=== PATIENT | male | born 1960 | race Caucasian/White ===

== ENCOUNTER 2019-08-09 17:08 | Emergency (ER) | payer BC, SELFPAY ==
--- NOTE | ~2019-08-09 | XR_ITS ---
EXAMINATION: XR chest 2V DATE: 08/09/2019 17:37 INDICATION: Cough TECHNIQUE: PA and lateral views of the chest are obtained. COMPARISON: None available FINDINGS: The lungs are free of acute opacities. There is no pleural effusion or pneumothorax. The ca rdiomediastinal silhouette is normal. There is moderate thoracic spondylosis. IMPRESSION: 1. No acute cardiopulmonary abnormality. Reviewed, dictated and finalized at location A. 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
[2019-08-09 17:15] VITALS: BP 135/77; PULSE 86; RESP 16; TEMP 36.4; O2SAT 97
--- NOTE | 2019-08-09 17:31 | ED.GENADULT ---
HPI - General Adult General Chief complaint: Upper Respiratory Infection Stated complaint: SORE THROAT/SINUS/COUGH Time Seen by Provider: 08/09/19 17:21 Source: patient Mode of arrival: ambulatory Limitations: no limitations History of Present Illness HPI narrative: 59-year-old male presents for evaluation of cough symptoms that have been present for 6 weeks. He reports cough appeared to get better but over the course of the last week, he noticed symptoms have worsened. He is reporting a combination of dry and productive cough, sinus congestion, rhinorrhea, fatigue. He has gone through entire boxes of Mucinex, [place], DayQuil, NyQuil. He did not get a flu shot this season. He denies any past medical history. He does not have a PCP. Denies any chest pain, radiating pain, shortness of breath, wheezing, fever, abnormal swelling, rash, weakness, dizziness. 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 He has never followed up with anyone about that. Related Data Allergies Allergy/AdvReac Type Severity Reaction Status Date / Time No Known Allergies Allergy Verified 08/09/19 17:14 Review of Systems Review of Systems: Narrative: CONSTITUTIONAL: Denies fever, chills, weight loss, or sweats. EYES: Denies visual changes, redness, or discharge. ENT: Reports rhinorrhea, congestion. Denies sore throat, otalgia. CARDIOVASCULAR: Denies chest pain, palpitations, or edema. RESPIRATORY: Denies dyspnea. Reports cough dry and productive GASTROINTESTINAL: Denies abdominal pain, nausea, vomiting, or diarrhea. GENITOURINARY: Denies dysuria, hematuria, urinary frequency, malordous urine SKIN: Denies rash or itching. MUSCULOSKELETAL: Denies back pain, joint pain, myalgia, swelling NEUROLOGIC: Denies headache, numbness, or weakness. All systems reviewed & are unremarkable except as noted in HPI and below PMFSH Comments At the time of my signature, I agree with nursing past medical, surgical, social and family history. There is no relevant family history pertinent to the presenting complaint. Exam Narrative: Exam Narrative: GENERAL: No distress, well appearing, well nourished, alert and calm, obese HEAD: Normocephalic, atraumatic. No sinus tenderness noted EYES: Pupils equal, round. Extraocular movements intact. Conjunctivae without redness or drainage. EARS: Tympanic membranes without erythema. TM landmarks intact with good light reflex. Ear canals without discharge. NOSE: Nares patent. Nasal turbinates inflamed. No nasal discharge MOUTH: Mucous membranes moist. No lesions. No cyanosis. Dentition grossly normal. THROAT: Oropharynx without signs erythema, exudates or lesions. Tonsils not enlarged. NECK: Supple. No lymphadenopathy. RESPIRATORY: Airway patent. Diminished aeration on bilaterally. No wheezing or crackles noted. Sats 97% room air. No retractions or nasal flaring noted CARDIOVASCULAR: Regular rate and rhythm. No murmurs, rubs, gallops, or clicks. Capillary refill <2 seconds. MUSCULOSKELETAL: Range of motion grossly normal in all four extremities. Strength grossly normal in all four extremities. No edema. No swelling SKIN: Color normal. Warm and dry. No rashes. NEURO: Alert. Motor intact in all extremities. Muscle tone normal. Cranial nerves II through XII grossly intact Course Course Emergency Course: Obtaining influenza swab and chest x-ray. Vital Signs Vital signs: Vital Signs Temperature 97.5 F L 08/09/19 17:15 Pulse Rate 86 08/09/19 17:15 Respiratory Rate 16 08/09/19 17:15 Blood Pressure 135/77 08/09/19 17:15 Pulse Oximetry 97 08/09/19 17:15 Temperature 97.5 F L 08/09/19 17:15 Pulse Rate 86 08/09/19 17:15 Respiratory Rate 16 08/09/19 17:15 Blood Pressure 135/77 08/09/19 17:15 Pulse Oximetry 97 08/09/19 17:15 Reviewed The patient has been informed that they may have pre-hypertension or Hypertension based on a
== END 2019-08-09 18:08 | disposition home or self-care (01) ==
PROVIDERS: Emergency Provider Nurse Practitioner
DX: J40 Bronchitis, not specified as acute or chronic (principal)
CPT/HCPCS: 71046; 87804; 99203; G0463

== ENCOUNTER 2021-10-17 07:06 | Outpatient (CLI) | payer OTHER, SELFPAY ==
--- NOTE | ~2021-10-17 | XR_ITS ---
EXAMINATION: XR knee RT 3V EXAM DATE: 10/17/2021 07:28 INDICATION: R22.41 -NO INJURY , mass and lump medial side. TECHNIQUE: Three projections of the right knee. There is no prior study for comparison. FINDINGS: There are surgical changes from right anterior cruciate ligament repair. There is moderate osteoarthritis which could be primary an/or posttraumatic given the ligament repair anchors. Bulky en dplate osteophytes along the medial aspect of the tibiofemoral compartment. Meniscal calcifications, chondrocalcinosis. Chondrocalcinosis can be an age related finding, but with other possible etiologi es including CPPD, parathyroid disorders, hemochromatosis, gout. No sizable joint effusion. There are no acute fractures identified. IMPRESSION: 1. Moderate right knee osteoarthritis. 2. Chondrocalcinosis. Reviewed, dictated and finalized at location A.
== END 2021-10-17 07:07 | disposition home or self-care (01) ==
LOC: ANHIMG 07:11
PROVIDERS: PCP Physician Assistant; Visit Provider Physician Assistant
DX: R22.41 Localized swelling, mass and lump, right lower limb (principal); M17.11 Unilateral primary osteoarthritis, right knee; M11.261 Other chondrocalcinosis, right knee
CPT/HCPCS: 73562

== ENCOUNTER 2024-10-11 11:06 | Outpatient (CLI) | payer MEDICARE, OTHER, SELFPAY ==
--- NOTE | ~2024-10-11 | XR_ITS ---
Left Shoulder Technique: AP and scapular Y views were obtained. Clinical History: Pain Findings: No fracture or dislocation is seen. Osseous alignment is anatomic. The glenohumeral and acr omioclavicular joint spaces are preserved. Soft tissues are unremarkable. Impression: Unremarkable left shoulder radiographs. Reviewed, dictated and finalized at [facility]. Impression: Unremarkable left shoulder radiographs.
--- OUTSIDE RECORDS SUMMARY | 2024-10-11 12:32 | XMS_ITS | Clinical Summary ---
Author Organization [facility] Address [address] [place] [id number] Care Team Providers Care Polysomnograph Tech Name Role Phone Omid Martinez MD Unavailable [phone] Ton Araiza MD Unavailable Nita Park MD Unavailable [phone] Ck Vasquez OD Unavailable [phone] Segun Kaur MD Unavailable Bonita Culp OD Unavailable [phone] Omid Martinez MD Primary Care Provider Allergies No known active allergies Medications rosuvastatin (Crestor) 10 mg tablet Take 1 tablet (10 mg total) by mouth daily 4 Active bimatoprost (Lumigan) 0.01 % ophthalmic drops Administer 1 drop into both eyes nightly 5 mL 11 5 07/03/19 26 Active timolol (TIMOPTIC) 0.5 % ophthalmic solution Administer 1 drop into both eyes 2 (two) times a day Active Active Problems Problem Noted Date Diagnosed Date Pellucid marginal degeneration of both corneas 0 10/04/2024 Assessment & Plan (10/04/2024 4:17 PM CDT): High cylinder with crab-claw appearance of steepening on korina 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 Aim -2.50 Assessment & Plan (08/16/2024 12:53 PM SUPERVISING LIBRARIAN): Myopic shift- hold on new Mrx for now with marked change F/U with IOLM and further discussion of cataract extraction (CE) Assessment & Plan (05/23/2024 11:08 AM SUPERVISING LIBRARIAN): Small central posterior subcapsular cataract (PSC) OD - approaching VS NVS left eye (OS) Refracted post dilation today - Shift OD, recheck next visit prior to Marroquin visual field (HVF) Monitor 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 both eyes 05/23/2024 Overview (08/16/2024): FHx: none CCT: 549/541 Gonio: 3-4 x 4 quadrants OU Tmax: 20s (per pt) Sx: none Gtt: lumigan qhs OU, timolol BID OU Intolerances: none Ocular Hx: ?NAION, no history of migraines, no history of raynauds, no episodes of anemia or requiring a transfusion Assessment & Plan (10/04/2024 4:17 PM CDT): Seen by Dr Jama - favor sequential NAION Per pt, pre-tx IOP in 20's IOP sl asymmetric 16/11 on 2 classes OU but unclear of IOP goal Baseline 10-2 performed today with central island inferior Would not do MIGS concurrently with phaco Assessment & Plan (08/16/2024 12:40 PM SUPERVISING LIBRARIAN): New patient, referred by Dr. Lopez for glaucoma suspect FHx: none CCT: 549/541 Gonio: 3-4 x 4 quadrants OU Tmax: 20s (per pt) Sx: none Gtt: lumigan qhs OU, timolol BID OU Intolerances: none Ocular Hx: ?NAION, no history of migraines, no history of raynauds, no episodes of anemia or requiring a transfusion Does note a history of snoring. otherwise relatively healthy. Notes that he has slowly lost vision in the right eye over the past 18 years. In the left has noticed progressive worsening of the vision in the past couple of years as well. HVF 06/2024 OD - superior altitudinal defect OS: - superior arcuate vs altitudinal defect OCT RNFL 08/16/24 OD - polar thinning with inf>sup loss, small nerve OS - primarily inferior thinning, small nerve Assessment/Plan: Patient notes history of gradual vision loss in the right eye x 18 years and more recently over the past several years has been noticing a gradual change in vision in the left eye. He does appear to have possible optic nerve pits in both eyes, so wonder whether visual field defects are associated with optic nerve pits. Would defer to neuro-ophthalmology for their thoughts on this. Possible normal tension glaucoma but no history of migraines or raynauds or episodes of severe blood loss. - Agree with neuro-ophth referral Obtain records from Dr. Culp at [facility] Obtain MRI for Dr. Jama's review - continue lumigan qhs and jasen both eyes (OU) Assessment & Plan (07/21/2024 4:03 PM SUPERVISING LIBRARIAN): No family history Difficult to discern anterior ischemic optic neuropathy (AION) changes from glaucoma Diagnosed by Dr Foster, IOPs were in mid 20s per patient. -Will request records intraocular pressure (IOP) both eyes (OU) mid teens to 20 on Lumigan at bedtime (QHS) Normal CCT both eyes (OU) Continue present meds Pt will need consult from glaucoma service Assessment & Plan (05/23/2024 12:29 PM SUPERVISING LIBRARIAN): No family history Diagnosed by Dr Foster, IOPs were in mid 20s per patient. -Will request records Acceptable intraocular pressure (IOP) both eyes (OU) on Lumigan at bedtime (QHS) Continue present meds FU For pach and Marroquin visual field (HVF) both eyes (OU) Pt will need consult from glaucoma service Venous stasis dermatitis 08/18/2013 Skin benign neoplasm 08/18/2013 Encounters Date Type Department Care Team Description 10/11/2024 Telephone [facility] Ophthalmology [address] [place] [address] [place] [address] Ivana Gates COA 10/04/2024 2:45 PM CDT Office Visit [facility] Ophthalmology [facility] [place] [address] Nita Park MD 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 both eyes (Primary Dx); Combined forms of age-related cataract of both eyes; Pellucid marginal degeneration of both corneas; NAION (non-arteritic anterior ischemic optic neuropathy), bilateral 10/04/2024 Telephone [facility] Ophthalmology [address] [place] [phone] Ivana Gates COA 09/12/2024 10:00 AM CDT - 09/12/2024 11:59 PM CDT Hospital Encounter [facility] [address] [place] [phone] Discharge Disposition: Discharge to home or self care 09/12/2024 9:59 AM CDT - 09/12/2024 11:59 PM CDT Hospital Encounter [facility] ([facility]) [address] [place] [address] Discharge Disposition: Discharge to home or self care 09/12/2024 Documentation [facility] Ophthalmology [address] [place] [phone] Argenis Jama MD 09/07/2024 Results Follow-Up [facility]hthalmology [address] [place] [phone] Argenis Jama MD 09/04/2024 10:40 AM CDT Lab [address] [address] Optic atrophy, both eyes 09/04/2024 9:15 AM CDT Office Visit [facility] Ophthalmology [address] [place] [phone] Argenis Jama MD Optic atrophy, both eyes (Primary Dx); 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; Snoring; Unspecified disorder of visual pathways 09/04/2024 8:30 AM CDT Imaging Exam [facility]mology [address] [place] [phone] Unspecified disorder of visual pathways; Observation for other specified suspected conditions 08/30/2024 Orders Only [facility] Ophthalmology [address] [phone] Argenis Jama MD Unspecified disorder of visual pathways (Primary Dx); Observation for other specified suspected conditions 08/23/2024 Telephone [facility] Ophthalmology [address] [place] [phone] Nita Park MD 08/22/2024 Telephone [facility] [address] [facility] [address] [facility] [address] [place] [address] Nita Park MD 08/16/2024 8:30 AM SUPERVISING LIBRARIAN Office Visit [facility] Ophthalmology [address] [place] [phone] Nita Park MD 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 both eyes (Primary Dx); NAION (non-arteritic anterior ischemic optic neuropathy), bilateral; Combined forms of age-related cataract of both eyes 08/16/2024 8:20 AM SUPERVISING LIBRARIAN Imaging Exam [facility] [address] [place] [phone] 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 both eyes 08/16/2024 8:00 AM SUPERVISING LIBRARIAN Imaging Exam [facility] [address] [place] [phone] 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 both eyes 08/10/2024 Orders Only [facility]mology [address] [place] [phone] Nita Park MD 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 both eyes (Primary Dx) 07/28/2024 Telephone [facility] Ophthalmology [address] [place] [phone] Argenis Jama MD 07/13/2024 2:00 PM SUPERVISING LIBRARIAN Office Visit [facility] [address] [facility] [address] [place] [address] Sol Lopez, OD 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 both eyes (Primary Dx); NAION (non-arteritic anterior ischemic optic neuropathy), bilateral; Anomalous optic nerve (HCC) from Last 3 Months Medical History Medical History Date Comments Hx Other Medical RT ACL repair Hx Other Medical Discectomy Hx Other Medical Varicocele Family History Medical History Relation Name Comments Cancer Father 2 Family history of malignant neoplasm - (Added by TW Conv) Coronary artery disease Father 2 Dinesh nary artery disease; Hypertension Father 2 Family history of hypertension - (Added by TW Conv) Relation Name Status Comments Father 1 Alive Father 2 Social History Tobacco Use Types Packs/Day Years Used Date Smoking Tobacco: Never Smokeless Tobacco: Never Tobacco Cessation:Counseling Given: Not Answered Alcohol Use Standard Drinks/Week Comments Yes 0 (1 standard drink = 0.6 oz pur e alcohol) AUDIT-C Answer Date Recorded Q1: How often do you have a drink containing alc ohol? Monthly or less 09/04/2024 Average Number of Drinks Not on file 025 Frequency of Binge Drinking Not on file 08/26 Sex and Gender Information Value Date Recorded Sex Assigned at Not on file Legal Sex Male 11:34 PM SUPERVISING LIBRARIAN Gender Identity Not on file Sexual Orientation Not on file Obstetrics History Last Filed Vital Signs Vital Sign Reading Time Taken Comments Blood Pressure 112/74 10/15/2014 3:45 PM CDT Pulse 80 10/15/2014 3:45 PM CDT Temperature - - Respiratory Rate - - Oxygen Saturation - - Inhaled Oxygen Concentration - - Weight 126.1 kg (278 lb) 10/15/2014 3:45 PM CDT Height 182.9 cm (6') 10/15/2014 3:45 PM CDT Body Mass Index 37.7 10/15/2014 3:45 PM CDT Plan of Treatment Health Maintenance Due Date Last Done Comments Colon Cancer Screening-Colonoscopy 1959 Depression Screening 1959 Fall Risk Assessment 1959 Hepatitis C Screening 1959 Prostate Cancer Screening-PSA 1959 Hepatitis B Screening 1977 Pneumococcal vaccine 65+ (1 of 1 - PCV) 2009 Zoster Vaccine (1 of 2) 2009 Covid-19 Vaccine (3 - 2023-2 5 season) 2024 09/18/2020, 08/21/2020 Well Visit 65+ 2024 Influenza Vaccine (Season Ended) 2025 05/24/2022, 04/18/2020, 09/15/2019, Additional history exists DTaP/Tdap/Td Vaccine (3 - Td or Tdap) 05/24/2032 05/24/2022, 04/14/2018 Procedures Procedure Name Priority Date/Time Associated Diagnosis Comments IOL BIOMETRY - OU - BOTH EYES Routine 10/04/2024 3:13 PM CDT Combined forms of age-related cataract of both eyes MARROQUIN VISUAL FIELD - OD - RIGHT EYE Routine 10/04/2024 3:13 PM CDT 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 both eyes NEURO MR OUTSIDE REFERENCE Routine 09/12/2024 10:00 AM CDT NEURO MR OUTSIDE REFERENCE Routine 09/12/2024 9:59 AM CDT FOLATE Routine 09/04/2024 10:53 AM CDT Optic atrophy, both eyes COPPER, SERUM Routine 09/04/2024 10:53 AM CDT Optic atrophy, both eyes METHYLMALONIC ACID, SERUM Routine 09/04/2024 10:53 AM CDT Optic atrophy, both eyes VITAMIN B1 Routine 09/04/2024 10:53 AM CDT Optic atrophy, both eyes VITAMIN B12 Routine 09/04/2024 10:53 AM CDT Optic atrophy, both eyes VITAMIN A Routine 09/04/2024 10:53 AM CDT Optic atrophy, both eyes RPR Routine 09/04/2024 10:53 AM CDT Optic atrophy, both eyes HIV 1/2 ANTIBODY PLUS P24 ANTIGEN Routine 09/04/2024 10:53 AM CDT Optic atrophy, both eyes MARROQUIN VISUAL FIELD - OU - BOTH EYES Routine 09/04/2024 8:57 AM CDT Unspecified disorder of visual pathways Observation for other specified suspected conditions FUNDUS PHOTOS/FAF - OU - BOTH EYES Routine 08/16/2024 10:46 AM SUPERVISING LIBRARIAN 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 both eyes MARROQUIN VISUAL FIELD - OU - BOTH EYES Routine 08/16/2024 8:34 AM SUPERVISING LIBRARIAN 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 both eyes OCT, OPTIC NERVE - OU - BOTH EYES Routine 08/16/2024 8:29 AM SUPERVISING LIBRARIAN 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 both eyes MARROQUIN VISUAL FIELD - OU - BOTH EYES Routine 07/13/2024 2:00 PM SUPERVISING LIBRARIAN 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 both eyes from Last 3 Months Results * IOL Biometry - OU - Both Eyes (10/04/2024 3:13 PM CDT) Anatomical Region Laterality Modality Head Ophthalmic Axial Measurements Narrative 10/04/2024 11:04 PM CDT Acceptable for intraocular lens (IOL) calc Pellucid marginal degen Nita Park MD OPH ULTRASOUND Final R esult * Marroquin Visual Field - OD - Right Eye (10/04/2024 3:13 PM CDT) [facility] Pattern Deviation OD 11.92 db CONTINUUM Mean Deviation OD -28.19 db CONTINUUM Anatomical Region Laterality Modality Head Visual Field Narrative 10/04/2024 11:03 PM CDT Fixation was good. Cooperation was good. Reliability was borderline. Foveal threshold was normal. Findings include superior altitudinal defect. Mean Deviation was -28.19 db. Pattern Deviation was 11.92 db. Notes OD: Superior altitudinal defect with inferior paracentral defect with remaining inferior island 10-2 baseline Nita Park MD OPH VISUAL FIELD Final Result * Neuro MR Outside Reference (09/12/2024 10:00 AM CDT) Impressions RAD_[email or web address] - 09/12/2024 10:00 AM CDT These images are for Reference purposes only and have not been reviewed by [facility] Radiology. There will be no report generated by a [facility] Radiologist. Narrative [facility] - 09/12/2024 10:00 AM CDT EXAMINATION: Images For Reference Purposes Only us Argenis Jama MD IMG MRI PROCEDURES Final Re sult Performing Organization Address [facility] Co de Phone Number [email or web address] * Neuro MR Outside Reference (09/12/2024 9:59 AM CDT) Impressions OLIVIA_LYUDMILA_BJ - 09/12/2024 9:59 AM CDT These images are for Reference purposes only and have not been reviewed by [facility] Radiology. There will be no report generated by a [facility] Radiologist. Narrative [facility] - 09/12/2024 9:59 AM CDT EXAMINATION: Images For Reference Purposes Only us Argenis Jama MD IMG MRI PROCEDURES Final Re sult Performing Organization Address [facility] Co de Phone Number [email or web address] * HIV 1/2 Antibody plus p24 Antigen Blood (09/04/2024 10:53 AM CDT) HIV 1/2 ab + p24 ag Nonreactive Nonreactive Comment:Nonreactive for HIV- 1 antigen and HIV-1/HIV-2 antibodies. No laboratory evidence of HIV infection. If acute HIV infection is suspected, consider testing for HIV-1 RNA. Current interpretive data was last revised on 22. Blood 09/04/2024 10:5 3 AM CDT 09/04/2024 12:35 PM CDT us Argenis Jama MD LAB MICROBIOLOGY - GENERAL ORDERABLES Final Result Performing Organization Address City/[facility] Co de Phone Number STEFANIE [facility] Department [place] [address] * Methylmalonic acid, serum (09/04/2024 10:53 AM CDT) MMA 0.25 <=0.40 nmol/mL [facility] ref Lab Comment: ADDITIONAL INFORMATION This test was developed and its performance characteristics determined by [facility] in a manner consistent with CLIA requirements. This test has not been cleared or approved by the U.S. Food and Drug Administration. Test Performed by: [facility] [place] [address] Financial Recruiter: Jarrod Macias Ph.D.; CLIA# [id number] Blood 09/04/2024 10:5 3 AM CDT 09/04/2024 2:21 PM CDT Argenis Jama MD LAB BLOOD ORDERABLES Final Result STEFANIE GARCIA [facility] Department [place] [address] [facility] * Copper, serum (09/04/2024 10:53 AM CDT) Pathologist [facility] Copper 119 73 - 129 mcg/dL [facility] ref Lab Comment: ADDITIONAL INFORMATION This test was developed and its performance characteristics determined by [facility] in a manner consistent with CLIA requirements. This test has not been cleared or approved by the U.S. Food and Drug Administration. Test Performed by: [facility] - [facility] [address] [place] [address] Financial Recruiter: Jarrod Macias Ph.D.; CLIA# [id number] Blood 09/04/2024 10:5 3 AM CDT 09/04/2024 12:43 PM CDT Narrative STEFANIE BOYD - 09/05/2024 3:49 PM CDT [place] blue top tube. No additives. us Argenis Jama MD LAB BLOOD ORDERABLES Final Result Performing Organization Address City/[facility] Co de Phone Number [facility] [place] [address] [facility] * Vitamin A (09/04/2024 10:53 AM CDT) Vitamin A 42.4 32.5 - 78.0 mcg/dL [facility] Lab Comment: ADDITIONAL INFORMATION This test was developed and its performance characteristics determined by [facility] in a manner consistent with CLIA requirements. This test has not been cleared or approved by the U.S. Food and Drug Administration. Test Performed by: [place] [address] Financial Recruiter: Jarrod Macias Ph.D.; CLIA# [id number] Blood 09/04/2024 10:5 3 AM CDT 09/04/2024 12:43 PM CDT us Argenis Jama MD LAB BLOOD ORDERABLES Final Result Performing Organization Address [facility] Co de Phone Number STEFANIE [facility]IAAl[facility] [place] [address] [facility] * RPR Blood (09/04/2024 10:53 AM CDT) RPR Nonreactive Nonreactive Blood 09/04/2024 10:5 3 AM CDT 09/04/2024 12:35 PM CDT us Argenis Jama MD LAB MICROBIOLOGY - GENERAL ORDERABLES Final Result Performing Organization Address City/[facility] Co de Phone Number STEFANIE [facility] [place] [address] * Vitamin B1 (09/04/2024 10:53 AM CDT) Thiamine (Vit B1) 141 70 - 180 nmol/L [facility] Lab Comment: ADDITIONAL INFORMATION This test was developed and its performance characteristics determined by [facility] in a manner consistent with CLIA requirements. This test has not been cleared or approved by the U.S. Food and Drug Administration. Test Performed by: [facility] - [facility] [address] [place] [address] Financial Recruiter: Jarrod Macias Ph.D.; CLIA# [id number] Blood 09/04/2024 10:5 3 AM CDT 09/04/2024 12:43 PM CDT us Argenis Jama MD LAB BLOOD ORDERABLES Final Result Performing Organization Address City/[facility]/ZIP Co de Phone Number [facility]IE [facility] [place] [address] [facility] * Folate (09/04/2024 10:53 AM CDT) Folic acid 12.3 >=5.0 ng/mL Blood 09/04/2024 10:5 3 AM CDT 09/04/2024 12:35 PM CDT us Argenis Jama MD LAB BLOOD ORDERABLES Final Result [facility] [place] [address] * Vitamin B12 (09/04/2024 10:53 AM CDT) Vitamin B12 428 230 - 1,250 pg/mL Blood 09/04/2024 10:5 3 AM CDT 09/04/2024 12:35 PM CDT Argenis Jama MD LAB BLOOD ORDERABLES Final Result STEFANIE [facility] [place] [address] * Marroquin Visual Field - OU - Both Eyes (09/04/2024 8:57 AM CDT) Pattern Deviation OS 10.91 dB CONTINUUM Pattern Deviation OD 15.11 dB CONTINUUM Mean Deviation OS -7.54 dB CONTINUUM Mean Deviation OD -13.87 dB CONTINUUM Anatomical Region Laterality Modality Head Other Narrative 09/04/2024 11:46 AM CDT Right Eye Fixation was good. Cooperation was good. Reliability was good. Mean Deviation was -13.87 dB. Pattern Deviation was 15.11 dB. Left Eye Fixation was borderline. Cooperation was good. Reliability was good. Mean Deviation was -7.54 dB. Pattern Deviation was 10.91 dB. Notes HVF 24-2 showed a dense superior altitudinal defect OD, and superior altitudinal defect, worse nasally, OS which is which is stable compared to Jun 2024. Argenis Jama MD OPHTH VISUAL FIELD Final Re sult * Fundus Photos/FAF - OU - Both Eyes (08/16/2024 10:46 AM SUPERVISING LIBRARIAN) Anatomical Region Laterality Modality Head Fundus Photograp hy Narrative 08/16/2024 12:58 PM SUPERVISING LIBRARIAN Right Eye Quality was good. Disc findings include increased cup to disc ratio. Macula findings include normal observations. Vessel findings include normal observations. Periphery findings include normal observations. Left Eye Quality was good. Disc findings include notching, thinning of rim. Macula findings include normal observations. Vessel findings include normal observations. Periphery findings include normal observations. Nita Park MD OPHTH PHOTOGRAPHY Final Result * Marroquin Visual Field - OU - Both Eyes (08/16/2024 8:34 AM SUPERVISING LIBRARIAN) Pattern Deviation OS 10.72 dB CONTINUUM Pattern Deviation OD 15.73 dB CONTINUUM Mean Deviation OS -8.51 dB CONTINUUM Mean Deviation OD -18.94 dB CONTINUUM Anatomical Region Laterality Modality Head Other Narrative 08/16/2024 12:57 PM SUPERVISING LIBRARIAN Right Eye Fixation was borderline. Cooperation was borderline. Reliability was borderline. Foveal threshold was normal. Findings include superior altitudinal defect. Mean Deviation was -18.94 dB. Pattern Deviation was 15.73 dB. Left Eye Fixation was borderline. Cooperation was borderline. Reliability was borderline. Foveal threshold was normal. Findings include superior arcuate defect. Mean Deviation was -8.51 dB. Pattern Deviation was 10.72 dB. Notes OD: superior altitudinal defect OS: superior nasal step Nita Park MD OPH VISUAL FIELD Final Result * OCT, Optic Nerve - OU - Both Eyes (08/16/2024 8:29 AM SUPERVISING LIBRARIAN) RNFL OS 93 micrometers CONTINUUM RNFL OD 71 micrometers CONTINUUM Anatomical Region Laterality Modality Head Other Narrative 08/16/2024 12:57 PM SUPERVISING LIBRARIAN Right Eye Reliability was good. Temporal thickness was normal. Superior thickness was showing abnormal thinning. Nasal thickness was normal. Inferior thickness was showing abnormal thinning. Average RNFL thickness 71 micrometers. Left Eye Reliability was good. Temporal thickness was normal. Superior thickness was normal. Nasal thickness was normal. Inferior thickness was showing abnormal thinning. Average RNFL thickness 93 micrometers. Nita Park MD OPH TOMOGRAPHY Final R esult * [place] Visual Field - OU - Both Eyes (07/13/2024 2:00 PM SUPERVISING LIBRARIAN) Pattern Deviation OS 11.02 CONTINUUM Pattern Deviation OD 15.04 CONTINUUM Mean Deviation OS -8.50 CONTINUUM Mean Deviation OD -14.17 CONTINUUM Anatomical Region Laterality Modality Head Visual Field Narrative 07/26/2024 8:18 AM SUPERVISING LIBRARIAN Right Eye Fixation was good. Cooperation was good. Reliability was good. Foveal threshold was normal. Findings include superior altitudinal defect. Mean Deviation was -14.17. Pattern Deviation was 15.04. Left Eye Fixation was good. Cooperation was good. Reliability was good. Foveal threshold was normal. Findings include superior altitudinal defect. Mean Deviation was -8.50. Pattern Deviation was 11.02. Sol Lopez OD OPHTH VISUAL FIELD Final Result from Last 3 Months Insurance MEDICARE [facility] Care Teams Polysomnograph Tech Relationship Specialty Start Date End Date Omid Martinez MD [address] [place] [address] PCP - General Family Medicine 10/04/24 Omid Martinez MD [address] [place] [address] Referring Physician Family Medicine 09/04/24 Ton Araiza MD [address] [facility] [address] [place] [address] Referring Physician Retina Ophthalmology 09/04/24 Nita Park MD [address] [facility], [address] [place] [address] Consulting Physician Glaucoma Ophthalmology 09/04/24 Ck Vasquez, OD [address] [place] [address] Primary Eye Care Provider Optometry 09/04/24 Segun Kaur MD [address] [place] [address] Consulting Physician Retina Ophthalmology 09/04/24 Bonita Culp, OD [address] [place] [address] Primary Eye Care Provider Optometry 09/04/24
--- OUTSIDE RECORDS SUMMARY | 2024-10-11 12:32 | XMS_ITS | Encounter Summary ---
Author Organization [facility] Address [address] [place] [address] Phone Care Team Providers Care Technician Test Systems Name Role Phone Omid Martinez MD Unavailable [phone] Ton Araiza MD Unavailable Nita Park MD Unavailable [phone] Ck Vasquez OD Unavailable [phone] Segun Kaur MD Unavailable Bonita Culp OD Unavailable [phone] Omid Martinez MD Primary Care Provider [phone] Encounter Details Date Type Department Care Team (Late st Contact Info) Description 10/11/2024 Telephone [facility] Ophthalmology [address] [facility] [place] [address] Ivana Gates COA Social History Tobacco Use Types Packs/Day Years Used Date Smoking Tobacco: Never Smokeless Tobacco: Never Alcohol Use Standard Drinks/Week Comments Yes 0 [...] on file 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 Gender Identity Not on file Sexual Orientation Not on file documented as of this encounter Miscellaneous Notes * Telephone Encounter - Ivana Gates COA - 10/11/2024 11:48 AM CDT Duplicate * Telephone Encounter - Ivana Gates COA - 10/11/2024 11:48 AM CDT Duplicate documented in this encounter Plan of Treatment Not on file documented as of this encounter Visit Diagnoses Not on filedocumented in this encounter Care Teams Technician Test Systems Relationship Specialty Start Date End Date Oimd Martinez MD [address] [place] [address] PCP - General Family Medicine 10/04/24 Omid Martinez MD [address] [place] [address] Referring Physician Family Medicine 09/04/24 Ton Araiza MD [address] [facility] [address] [place] [address] Referring Physician Retina Ophthalmology 09/04/24 Nita Park MD [address] [facility], [address] [place] [address] Consulting Physician Glaucoma Ophthalmology 09/04/24 Ck Vasquez OD [address] [place] [address] Primary Eye Care Provider Optometry 09/04/24 Segun Kaur MD [address] [place] [address] Consulting Physician Retina Ophthalmology 09/04/24 Bonita Culp OD [address] [place] [address] Primary Eye Care Provider Optometry 09/04/24 documented as of this encounter
--- OUTSIDE RECORDS SUMMARY | 2024-10-11 12:32 | XMS_ITS | Continuity of Care Document ---
Author Organization [facility] Address [address] [place] [address] Phone Care Team Providers Care Building Code Inspector Name Role Phone Omid Martinez MD Unavailable Unavailable Allergies, Adverse Reactions, Alerts Substance Reaction Status Criticality No Known Allergies Active No Inform ation Medications Medication Instructions Dosage Effective Dates (start - stop) Status Comments Crestor 10 mg tablet take 1 tablet by or al route every day 10 MG - Active Procedures Procedure Date OFFICE/OUTPATIENT VISIT, EST Medicare Addendum OFFICE/OUTPATIENT VISIT, EST OFFICE/OUTPATIENT VISIT, EST PREV VISIT, NEW, AGE 40-64 OFFICE/OUTPATIENT VISIT, NEW Advance Directives Directive Yes / No Effective Date File Name No Information Encounters Encounter Description Practice Location Reason(s) For Visit Diagnoses Date Provider Providers Copied on Encounter OFFICE/OUTPA TIENT VISIT, EST [facility], [address] [place], [place], [id number], [place] tel:[phone] [facility] shoulder pain1 (chief complaint) HLP (chief complaint) weight gain1 (chief complaint) vision1 (chief complaint) Pain in left shoulderMixed hyperlipidemiaIsche tricia optic neuropathy of eyeAbnormal weight gainEncounter for screening for malignant neoplasm of colon 5 Juan Anne. [address], [id number] , [place]. tel:[phone] OFFICE/OUTPA TIENT VISIT, [facility], [address] [place], [address], [place] tel:[phone] [facility] COVID1 (chief complaint) Viral infection 5 Juan Anne. [address], [place], [place], [address] , [place]. tel:[phone] OFFICE/OUTPA TIENT VISIT, EST [facility], [address], [place], [place], [address], [place] tel:[phone] [facility] visual loss1 (chief complaint) Ischemic optic neuropathy of eye 4 Juan Omid. [address], [place], [place], [address] , [place]. tel:[phone] PREV VISIT, NEW, AGE 40-64 [facility], [address], [place], [place], [address], [place] tel:[phone] [facility] physical (chief complaint) Encounter for general adult medical exam w abnormal findingsMixed hyperlipidemiaOther visual disturbances 4 Juan Anne. [address], [place], [place], [address] , [place]. [phone] Family History Family Member Type Diagnosis Age At Onset Mother Problem 94 breast CA Sister Problem Alive and well Brother Problem Prostate CA 67 Father Problem of esophageal CA 86 Payers Payer name Insurance type Covered constitution party ID Authoriza tion(s) [employer] [place] WPS MB [id number] [facility] [id number] Social History Type Description Quantity Date Captured Comments Alcohol Use Details beer 2 drinks weekly Caffeine Use Details Unknown Tobacco Use Status Current non-smoker Smoking Status Never smoker Sex Male Vital Signs Date / Time: Height Weight BMI Pulse Rate Blood Pressure Temperature Respiratory Rate Body Surface Area Head Circumference BMI percentile Pulse Ox Inhaled Ox 11:19 AM 72.00 in 305.60 lbs 41.4 5 kg/m eter (2) 76 /min 128/78 mm[Hg] 98.0 F 16 /min Chief Complaint And Reason For Visit From encounter dated '09/18/2024 09:55'. shoulder pain1 (chief complaint). Description: Pt c/o chronic left shoulder pain for one year Pt denies any injury Pt notices sharp pain left shoulder when he tries to lift left shoulder Pt notices some pain radiating down to left elbow as well .Pt denies any neck pain Pt denies any numbness or tingling. Pt denies any shoulder redness or warmth HLP (chief complaint). Description: Pt has HLP Pt takes crestor Pt denies any myalgia. his lipid profile is ok weight gain1 (chief complaint). Description: Pt has been gaining weight Pt is not physically active vision1 (chief complaint). Description: pt has bilateral ischemia neuropathy both byes and he is seeing ophthalmology to try to find a solution Pt has decreased vision Plan Of Treatment Date Type Action Status Referral Ordered: ALEJA JURADO -[facility]opathic & Osteopathic Physicians : Orthopaedic Surgery (related to Pain in left shoulder) ordered Referral Ordered: Physical Therapy (related to Pain in left shoulder) ordered Referral Referred To: Physical Therapy Ordered: Referrals: Physical Therapy. Evaluate and treat ordered Referral Referred To: ALEJA JURADO [address] [place], [place], [phone] Ordered: Referrals: Allopathic & Osteopathic Physicians : Orthopaedic Surgery. ALEJA JURADO. Evaluate and treat ordered Referral Ordered: Martin Tenorio -[facility]opathic [facility] Osteopathic Physicians : Ophthalmology (related to Ischemic optic neuropathy of eye) ordered Referral Referred To: Martin Tenorio [address] [facility]
[address] [place], [place], [phone] Ordered: Referrals: Allopathic & Osteopathic Physicians : Ophthalmology. Martin Tenorio. Evaluate and treat ordered Referral Ordered: Ton Araiza -[facility]opathic [facility] Osteopathic Physicians : Ophthalmology (related to Other visual disturbances) ordered Referral Ordered: COLONOSCOPY AND BIOPSY ordered Referral Referred To: Ton Araiza [address] [facility]
[address] [place], [phone] Ordered: Referrals: Allopathic & Osteopathic Physicians : Ophthalmology. Ton Araiza. Evaluate and treat ordered Appointment Zana Garcia BOOKED History Of Present Illness Encounter Date Complaint History Of Prese nt Illness shoulder pain1 Pt c/o chronic l eft shoulder pain for one year Pt denies any injury Pt notices sharp pain left shoulder when he tries to lift left shoulder Pt notices some pain radiating down to left elbow as well .Pt denies any neck pain Pt denies any numbness or tingling. Pt denies any shoulder redness or warmth vision1 pt has bilateral ischemia neuropathy both byes and he is seeing ophthalmology to try to find a solution Pt has decreased vision weight gain1 Pt has been gain ing weight Pt is not physically active HLP Pt has HLP Pt jose burns Pt denies any myalgia. his lipid profile is ok COVID1 Pt c/o acute ons et of dry cough, sinus congestion, sore throat, malaise, low grade temp since yesterday. He tested positive for COVID today. His also has COVID currently. Pt has not received the COVID booster yet. 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 pt notices mild burning both eye sometimes Pt is seeing retina specialist who diagnosed him with non-arteritic anterior ischemic optic neuropathy and he needs to see Dr. Jona glynn for further treatment. Pt is at risk to lose his eyesight completely . 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 Pt needs referral. Pt uses eye drop for glaucoma which does help. Pt otherwise feels fine. Pt denies any other complaints Instructions Date Instruction Additional Infor mation No Information Assessments Type Assessment Date assessment Pain in left shoulder assessment Mixed hyperlipidemia assessment Ischemic optic neuropathy of eye assessment Abnormal weight gain assessment Encounter for screening for martha gnant neoplasm of colon Mental Status Date Cognitive Assessment Orientation - Cartwright ed to time, place, person, situation.
--- OUTSIDE RECORDS SUMMARY | 2024-10-11 12:32 | XMS_ITS | Encounter Summary ---
Author Organization [facility] Address [address] [place] [address] Phone Care Team Providers Care Family Resource Coordinator Name Role Phone Omid Martinez MD Unavailable Ton Araiza MD Unavailable Nita Park MD Unavailable [phone] Ck Vasquez OD Unavailable [phone] Segun Kaur MD Unavailable Bonita Culp OD Unavailable [phone] Omid Martinez MD Primary Care Provider [phone] Encounter Details Date Type Department Care Team (Late st Contact Info) Description 10/04/2024 Telephone [facility] Ophthalmology [address] [facility] [place] [address] Ivana Gates COA Social History [...] on file 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 Gender Identity Not on file Sexual Orientation Not on file documented as of this encounter Miscellaneous Notes * Telephone Encounter - Ivana Gates COA - 10/04/2024 4:28 PM CDT Phoned patient to schedule surgery: My Chart 10/11 Location: [facility] SX plan: CE/IOL OD Discussed surgery date: 11/07 HOLDING Ascan:[] yes [] no Target plan: Cataract Event Planning: IOL Ordered: Second eye (order added) Blood thinners (yes) or (no) special instruction: Postop appointment [] Prep for case[] Letter mailed[] Prior auth[] Drops sent[] Line up (arrival time) SX Time: * Telephone Encounter - Ivana Gates COA - 10/04/2024 4:28 PM CDT ----- Message from Nita Park MD sent at 10/04/2024 11:07 PM CDT ----- Cataract extraction (CE)/intraocular lens (IOL) right eye (OD) [employer] near- please confirm with pt when scheduling ? 11/07 documented in this encounter Plan of Treatment Not on file documented as of this encounter Visit Diagnoses Not on filedocumented in this encounter Care Teams Family Resource Coordinator Relationship Specialty Start Date End Date Omid Martinez MD [address] [place] [address] PCP - General Family Medicine 10/04/24 Omid Martinez MD [address] [place] [address] Referring Physician Family Medicine 09/04/24 Ton Araiza MD [address] [place] [address] Referring Physician Retina Ophthalmology 09/04/24 Nita Park MD [address] [facility], [address] [place] [address] Consulting Physician Glaucoma Ophthalmology 09/04/24 Ck Vasquez, OD [address] [place] [address] Primary Eye Care Provider Optometry 09/04/24 Segun Kaur MD [address] [place] [address] Consulting Physician Retina Ophthalmology 09/04/24 Bonita Culp, OD [address] [facility] [place] [address] Primary Eye Care Provider Optometry 09/04/24 documented as of this encounter
--- OUTSIDE RECORDS SUMMARY | 2024-10-11 12:32 | XMS_ITS | Referral Summary ---
Author Organization [facility] Address [address] [place] [phone] Care Team Providers Care Automatic Grinding Machine Operator Name Role Phone Omid Martinez MD Unavailable [phone] Ton Araiza MD Unavailable Nita Park MD Unavailable Ck Vasquez OD Unavailable [phone] Segun Kaur MD Unavailable Bonita Culp OD Unavailable Omid Martinez MD Primary Care Provider [phone] Encounters Date Type Department Care Team Description 10/11/2024 Telephone [facility] [address] [place] [phone] Ivana Gates COA 10/04/2024 Telephone [facility] [address] [place] [phone] Ivana Gates COA 10/04/2024 2:45 PM CDT Office Visit [facility] [address] [place] [phone] Nita Park MD 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 both eyes (Primary Dx); Combined forms of age-related cataract of both eyes; Pellucid marginal degeneration of both corneas; NAION (non-arteritic anterior ischemic optic neuropathy), bilateral 09/12/2024 Documentation [facility] [address] [place] [address] [address] [place] [phone] Argenis Jama MD 09/12/2024 10:00 AM CDT - 09/12/2024 11:59 PM CDT Hospital Encounter [facility] ([facility]) [address] [place] [phone] Discharge Disposition: Discharge to home or self care 09/12/2024 9:59 AM CDT - 09/12/2024 11:59 PM CDT Hospital Encounter [facility] ([facility]) [address] [place] [phone] Discharge Disposition: Discharge to home or self care 09/07/2024 Results Follow-Up [facility] [address] [place] [phone] Argenis Jama MD 09/04/2024 10:40 AM CDT Lab [address] [address] Optic atrophy, both eyes 09/04/2024 9:15 AM CDT Office Visit [facility] [address] [place] [phone] Argenis Jama MD Optic atrophy, both eyes (Primary Dx); 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; Snoring; Unspecified disorder of visual pathways 09/04/2024 8:30 AM CDT Imaging Exam [facility] [address] [place] [phone] Unspecified disorder of visual pathways; Observation for other specified suspected conditions 08/30/2024 Orders Only [facility] [address] [place] [phone] Argenis Jama MD Unspecified disorder of visual pathways (Primary Dx); Observation for other specified suspected conditions 08/23/2024 Telephone [facility] [address] [place] [phone] Nita Park MD 08/22/2024 Telephone [facility] [address] [place] [address] [address] [place] [phone] Nita Park MD 08/16/2024 8:30 AM AUTOMOBILE SERVICE STATION MECHANIC Office Visit [facility] [address] [place] [phone] Nita Park MD 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 both eyes (Primary Dx); NAION (non-arteritic anterior ischemic optic neuropathy), bilateral; Combined forms of age-related cataract of both eyes 08/16/2024 8:00 AM AUTOMOBILE SERVICE STATION MECHANIC Imaging Exam [facility] [address] [place] [phone] 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 both eyes 08/16/2024 8:20 AM AUTOMOBILE SERVICE STATION MECHANIC Imaging Exam [facility] [address] [place] [phone] 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 both eyes 08/10/2024 Orders Only [facility] [address] [place] [phone] Nita Park MD 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 both eyes (Primary Dx) 07/28/2024 Telephone [facility] [address] [place] [phone] Argenis Jama MD 07/13/2024 2:00 PM AUTOMOBILE SERVICE STATION MECHANIC Office Visit [facility] [address] [place] [phone] Sol Lopez, OD 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 both eyes (Primary Dx); NAION (non-arteritic anterior ischemic optic neuropathy), bilateral; Anomalous optic nerve (HCC) from Last 3 Months Allergies No known active allergies Medications rosuvastatin [...] Plan (10/04/2024 11:05 PM CDT): NAION OD 2016, OS 2022 per [facility] note MRI Brain performed 03/2023 Consistent with ischemic event given objective (visual field (VF) and subjective vision loss Assessment & Plan (08/16/2024 12:38 PM AUTOMOBILE SERVICE STATION MECHANIC): NAION OD 2019, OS 2022 per [facility] note MRI Brain performed 03/2023 ? 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 Very poor Ss on OCT (6/10 and 5/10) 06/09/[address] Arazia states pt had a negative MRI, and progressive vision loss despite good control of intraocular pressure (IOP) and wanted referral to Neuro opth Anomalous optic nerve 05/23/2024 Assessment & Plan (07/26/2024 8:16 AM AUTOMOBILE SERVICE STATION MECHANIC): And high myopia may be contibuting to vf loss Assessment & Plan (05/23/2024 11:10 AM AUTOMOBILE SERVICE STATION MECHANIC): Pt has Myopic/tilted nerve from high myopic [...] -2.50 Assessment & Plan (08/16/2024 12:53 PM AUTOMOBILE SERVICE STATION MECHANIC): Myopic shift- hold on new Mrx for now with marked change F/U with IOLM and further discussion of cataract extraction (CE) Assessment & Plan (05/23/2024 11:08 AM AUTOMOBILE SERVICE STATION MECHANIC): Small central posterior subcapsular cataract (PSC) OD [...] phaco Assessment & Plan (08/16/2024 12:40 PM AUTOMOBILE SERVICE STATION MECHANIC): New patient, referred by Dr. Lopez for [...] referral Obtain records from Dr. Culp at [facility] Obtain MRI for Dr. Jama's review - continue lumigan qhs and jasen both eyes (OU) Assessment & Plan (07/21/2024 4:03 PM AUTOMOBILE SERVICE STATION MECHANIC): No family history Difficult to discern anterior [...] service Assessment & Plan (05/23/2024 12:29 PM AUTOMOBILE SERVICE STATION MECHANIC): No family history Diagnosed by Dr Fostre, IOPs were in mid 20s per patient. -Will request records Acceptable intraocular pressure (IOP) both eyes (OU) on Lumigan at bedtime (QHS) Continue present meds FU For pach and Marroquin visual field (HVF) both eyes (OU) Pt will need consult from glaucoma service Venous stasis dermatitis 08/18/2013 Skin benign neoplasm 08/18/2013 Social History Tobacco Use Types Packs/Day Years [...] on file Legal Sex Male 11:34 PM AUTOMOBILE SERVICE STATION MECHANIC Gender Identity Not on file Sexual Orientation Not on file Last Filed Vital Signs Vital Sign Reading [...] 10/15/2014 3:45 PM CDT Plan of Treatment Not on file Procedures Procedure Name Priority Date/Time Associated Diagnosis [...] - BOTH EYES Routine 08/16/2024 10:46 AM AUTOMOBILE SERVICE STATION MECHANIC 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 both eyes MARROQUIN VISUAL FIELD - OU - BOTH EYES Routine 08/16/2024 8:34 AM AUTOMOBILE SERVICE STATION MECHANIC 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 both eyes OCT, OPTIC NERVE - OU - BOTH EYES Routine 08/16/2024 8:29 AM AUTOMOBILE SERVICE STATION MECHANIC 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 both eyes MARROQUIN VISUAL FIELD - OU - BOTH EYES Routine 07/13/2024 2:00 PM AUTOMOBILE SERVICE STATION MECHANIC 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 both eyes from Last 3 Months Results * IOL Biometry - OU - Both Eyes (10/04/2024 3:13 PM CDT) Anatomical Region Laterality Modality Head Ophthalmic Axial Measurements Narrative 10/04/2024 11:04 PM CDT Acceptable for intraocular lens (IOL) calc Pellucid marginal degen us Nita Park MD OPHTH ULTRASOUND Final R esult * Marroquin Visual Field - OD - Right Eye (10/04/2024 3:13 PM CDT) Pattern Deviation OD 11.92 db CONTINUUM Mean [...] inferior island 10-2 baseline Nita Park MD [facility] VISUAL FIELD Final Result * Neuro MR Outside Reference (09/12/2024 10:00 AM CDT) Impressions [facility] - 09/12/2024 10:00 AM CDT These images are for Reference purposes only and have not been reviewed by [facility]. There will be no report generated by a [facility] Radiologist. Narrative [facility] - 09/12/2024 10:00 AM CDT EXAMINATION: Images For Reference Purposes Only us Argenis Jama MD IM MRI PROCEDURES Final Re sult Performing Organization Address [facility] de Phone Number [email or web address] * Neuro MR Outside Reference (09/12/2024 9:59 AM CDT) Impressions [facility] - 09/12/2024 9:59 AM CDT These images are for Reference purposes only and have not been reviewed by [facility]. There will be no report generated by a [facility] Radiologist. Narrative [facility] - 09/12/2024 9:59 AM CDT EXAMINATION: Images For Reference Purposes Only us Argenis Jama MD IM MRI PROCEDURES Final Re sult Performing Organization Address [facility] Co de Phone Number [email or web address] * HIV 1/2 Antibody plus p24 Antigen Blood (09/04/2024 10:53 AM CDT) Pathologist [facility] HIV 1/2 ab + p24 ag Nonreactive [...] GENERAL ORDERABLES Final Result Performing Organization Address [facility] Co de Phone Number STEFANIE [facility] [place] [address] * Methylmalonic acid, serum (09/04/2024 10:53 AM CDT) Pathologist [facility] MMA 0.25 <=0.40 nmol/mL [place] [facility] Comment: ADDITIONAL INFORMATION This test was developed and its performance characteristics determined by [facility] in a manner consistent with CLIA requirements. This test has not been cleared or approved by the U.S. Food and Drug Administration. Test Performed by: [facility] - [address] [address] Knit Goods Washer: Jarrod Macias Ph.D.; CLIA# [id number] Blood 09/04/2024 10:5 3 AM CDT 09/04/2024 2:21 PM CDT us Argenis Jama MD LAB BLOOD ORDERABLES Final Result Performing Organization Address City/[facility] Co de Phone Number [facility] [place] [address] [place] [facility] * Copper, serum (09/04/2024 10:53 AM CDT) Copper 119 73 - 129 mcg/dL [place] [facility] Comment: ADDITIONAL INFORMATION This test was developed and its performance characteristics determined by [facility] in a manner consistent with CLIA requirements. This test has not been cleared or approved by the U.S. Food and Drug Administration. Test Performed by: [facility] [place] [address] Knit Goods Washer: Jarrod Macias Ph.D.; CLIA# [id number] Blood 09/04/2024 10:5 3 AM CDT 09/04/2024 12:43 PM CDT Narrative STEFANIE BOYD - 09/05/2024 3:49 PM CDT [place] blue top tube. No additives. Argenis Jama MD LAB BLOOD ORDERABLES Final Result STEFANIE GARCIA [facility] [place] [address] [facility] * Vitamin A (09/04/2024 10:53 AM CDT) Pathologist [facility] Vitamin A 42.4 32.5 - 78.0 mcg/dL [place] [facility] Comment: ADDITIONAL INFORMATION This test was developed and its performance characteristics determined by [facility] in a manner consistent with CLIA requirements. This test has not been cleared or approved by the U.S. Food and Drug Administration. Test Performed by: [facility] [place] [address] Knit Goods Washer: Jarrod Macias Ph.D.; CLIA# [id number] Blood 09/04/2024 10:5 3 AM CDT 09/04/2024 12:43 PM CDT us Argenis Jama MD LAB BLOOD ORDERABLES Final Result Performing Organization Address City/[facility]/ZIP Co de Phone Number [facility] [place] [address] [place] [facility] * RPR Blood (09/04/2024 10:53 AM CDT) RPR Nonreactive Nonreactive Blood 09/04/2024 10:5 3 AM CDT 09/04/2024 12:35 PM CDT Argenis Jama MD LAB MICROBIOLOGY - GENERAL ORDERABLES Final Result Performing Organization Address [facility] de Phone Number [facility] [place] [address] * Vitamin B1 (09/04/2024 10:53 AM CDT) Thiamine (Vit B1) 141 70 - 180 nmol/L [place] ref Lab Comment: ADDITIONAL INFORMATION This test was developed and its performance characteristics determined by [facility] in a manner consistent with CLIA requirements. This test has not been cleared or approved by the U.S. Food and Drug Administration. Test Performed by: [facility] - [address] [address] Knit Goods Washer: Jarrod Macias Ph.D.; CLIA# [id number] Blood 09/04/2024 10:5 3 AM CDT 09/04/2024 12:43 PM CDT us Argenis Jama MD LAB BLOOD ORDERABLES Final Result Performing Organization Address City/[facility] Co de Phone Number STEFANIE [facility] [place] [address] [place] [facility] * Folate (09/04/2024 10:53 AM CDT) Pathologist [facility] Folic acid 12.3 >=5.0 ng/mL Blood 09/04/2024 10:5 3 AM CDT 09/04/2024 12:35 PM CDT us Argenis Jama MD LAB BLOOD ORDERABLES Final Result Performing Organization Address [facility] Co de Phone Number [facility] [place] [employer] [place] [address] * Vitamin B12 (09/04/2024 10:53 AM CDT) Pathologist [facility] Vitamin B12 428 230 - 1,250 pg/mL Blood 09/04/2024 10:5 3 AM CDT 09/04/2024 12:35 PM CDT us Argenis Jama MD LAB BLOOD ORDERABLES Final Result Performing Organization Address [facility] Phone Number [facility] [place] [place] [address] * Marroquin Visual Field - OU - Both Eyes (09/04/2024 8:57 AM CDT) [facility] Pattern Deviation OS 10.91 dB CONTINUUM Pattern [...] compared to Jun 2024. Argenis Jama MD OPH VISUAL FIELD Final Re sult * Fundus Photos/FAF - OU - Both Eyes (08/16/2024 10:46 AM AUTOMOBILE SERVICE STATION MECHANIC) Anatomical Region Laterality Modality Head Fundus Photograp hy Narrative 08/16/2024 12:58 PM AUTOMOBILE SERVICE STATION MECHANIC Right Eye Quality was good. Disc findings include increased cup to disc ratio. Macula findings include normal observations. Vessel findings include normal observations. Periphery findings include normal observations. Left Eye Quality was good. Disc findings include notching, thinning of rim. Macula findings include normal observations. Vessel findings include normal observations. Periphery findings include normal observations. Nita Park MD OPH PHOTOGRAPHY Final Result * Marroquin Visual Field - OU - Both Eyes (08/16/2024 8:34 AM AUTOMOBILE SERVICE STATION MECHANIC) Pattern Deviation OS 10.72 dB CONTINUUM Pattern Deviation OD 15.73 dB CONTINUUM Mean Deviation OS -8.51 dB CONTINUUM Mean Deviation OD -18.94 dB CONTINUUM Anatomical Region Laterality Modality Head Other Narrative 08/16/2024 12:57 PM AUTOMOBILE SERVICE STATION MECHANIC Right Eye Fixation was borderline. Cooperation was [...] OU - Both Eyes (08/16/2024 8:29 AM AUTOMOBILE SERVICE STATION MECHANIC) RNFL OS 93 micrometers CONTINUUM RNFL OD 71 micrometers CONTINUUM Anatomical Region Laterality Modality Head Other Narrative 08/16/2024 12:57 PM AUTOMOBILE SERVICE STATION MECHANIC Right Eye Reliability was good. Temporal thickness was normal. Superior thickness was showing abnormal thinning. Nasal thickness was normal. Inferior thickness was showing abnormal thinning. Average RNFL thickness 71 micrometers. Left Eye Reliability was good. Temporal thickness was normal. Superior thickness was normal. Nasal thickness was normal. Inferior thickness was showing abnormal thinning. Average RNFL thickness 93 micrometers. Nita Park MD OPHTH TOMOGRAPHY Final R esult * Marroquin Visual Field - OU - Both Eyes (07/13/2024 2:00 PM AUTOMOBILE SERVICE STATION MECHANIC) Pattern Deviation OS 11.02 CONTINUUM Pattern Deviation OD 15.04 CONTINUUM Mean Deviation OS -8.50 CONTINUUM Mean Deviation OD -14.17 CONTINUUM Anatomical Region Laterality Modality Head Visual Field Narrative 07/26/2024 8:18 AM AUTOMOBILE SERVICE STATION MECHANIC Right Eye Fixation was good. Cooperation was [...] Result from Last 3 Months Insurance MEDICARE [facility] [address] [id number] Care Teams Automatic Grinding Machine Operator Relationship Specialty Start Date End Date Omid Martinez MD [address] [place] [address] PCP - General Family Medicine 10/04/24 Omid Martinez MD [address] [place] [address] Referring Physician Family Medicine 09/04/24 Ton Araiza MD [address] [address] Referring Physician Retina Ophthalmology 09/04/24 Nita Park MD [address] [facility] DEPT OPHTHALMOLOG[facility], [address] [place] [address] Consulting Physician Glaucoma Ophthalmology 09/04/24 Ck Vasquez, OD [address] [place] [address] Primary Eye Care Provider Optometry 09/04/24 Segun Kaur MD [address] [place] [address] Consulting Physician Retina Ophthalmology 09/04/24 Bonita Culp, OD [address] [place] [address] Primary Eye Care Provider Optometry 09/04/24
--- OUTSIDE RECORDS SUMMARY | 2024-10-11 12:32 | XMS_ITS | Clinical Summary ---
Author Organization [facility] Address [address] [place] [address] Care Team Providers Care Bag Hanger Name Role Phone Omid Martinez MD Primary Care Provider [phone] Allergies No known active allergies Medications LUMIGAN 0.01 % Solution Place 1 drop into both eyes nightly at bedtime. 4 Active CRESTOR 10 MG tablet Take 1 tablet (10 mg total) by mouth nightly at bedtime. 4 Active Na sulfate-K sulfate-Mg sulfate (SUPREP BOWEL PREP KIT) 17.5-3.13-1.6 GM/177ML SolutionIndicat ions:Screening for colon cancer Take 177 mLs by mouth every 12 (twelve) hours. Per GI instructions 354 mL 4 Active Resolved Problems Problem Noted Date Diagnosed Date Resolved Date Screening for colon cancer 12/16/2023 0 12/20/2023 Immunizations Immunization Administration Dates Next Due Influenza Adult (Generic) 05/24/2022,04/18/2020, 09/15/2019,04/14/2018 Tdap (Generic) 05/24/2022,04/14/2018 Social History Tobacco Use Types Packs/Day Years Used Date Smoking Tobacco: Never Smokeless Tobacco: Never Tobacco Cessation:Counseling Given: Not Answered Alcohol Use Standard Drinks/Week Comments Yes 0 (1 standard drink = 0.6 oz pur e alcohol) PHQ-2 Answer Date Recorded Patient Health Questionnaire-2 Score 0 12/16/2023 Sex and Gender Information Value Date Recorded Sex Assigned at Not on file Legal Sex Male 10:16 AM CDT Gender Identity Not on file Sexual Orientation Not on file Last Filed Vital Signs Vital Sign Reading Time Taken Comments Blood Pressure 124/75 12/16/2023 1:18 PM CDT Pulse 73 12/16/2023 1:18 PM CDT Temperature 36.3 C (97.4 F) 12/16/2023 1:18 PM CDT Respiratory Rate - - Oxygen Saturation 95% 12/16/2023 1:18 PM CDT Inhaled Oxygen Concentration - - Weight 130.6 kg (288 lb) 12/16/2023 1:18 PM CDT Height 182.9 cm (6') 12/16/2023 1:18 PM CDT Body Mass Index 39.06 12/16/2023 1:18 PM CDT Plan of Treatment Health Maintenance Due Date Last Done Comments Colorectal Cancer Screening Colonoscopy (10 Years) 1960 Hepatitis C 1977 Zoster Vaccines (1 of 2) 2009 COVID-19 Vaccine (3 - 2023-2 5 season) 2024 09/18/2020, 08/21/2020 Pneumococcal Vaccine: 50+ Years (1 of 1 - PCV) 2024 PHQ-2 (Physician [place]) 06/28/2024 12/16/2023 DTaP, Tdap and Td Vaccines ( 3 - Td or Tdap) 05/24/2032 05/24/2022, 04/14/2018 RSV Immunization or 60+ Years (1 - 1-dose 75+ series) 2034 Meningococcal B Vaccine Aged Out No l onger eligible based on patient's age to complete this topic Meningococcal Vaccine Aged Out No corwin vannessa eligible based on patient's age to complete this topic Pneumococcal Vaccine: Pediatrics (0 to 5 Years) and At-Risk Patients (6 to 49 Years) Aged Out No longer eligible b ased on patient's age to complete this topic RSV Immunizations Under 20 Months Aged Out No longer eligible b ased on patient's age to complete this topic Insurance [facility] Care Teams Bag Hanger Relationship Specialty Start Date End Date Omid Martinez MD [address] [place] [address] PCP - General FAMILY PRACTICE 11/12/23
== END 2024-10-11 11:07 | disposition home or self-care (01) ==
PROVIDERS: PCP Emergency Medicine; Visit Provider Orthopaedic Surgery
DX: M25.512 Pain in left shoulder (principal)
CPT/HCPCS: 73030

== ENCOUNTER 2024-11-21 08:39 | Outpatient (CLI) | payer MEDICARE, OTHER, SELFPAY ==
--- OUTSIDE RECORDS SUMMARY | 2024-11-21 08:42 | XMS_ITS | Referral Summary ---
Author Organization [facility] Address [address] [place] [phone] Care Team Providers Care Qa Software Tester Name Role Phone Omid Martinez MD Unavailable [phone] Ton Araiza MD Unavailable Nita Park MD Unavailable [phone] Ck Vasquez OD Unavailable [phone] Segun Kaur MD Unavailable Bonita Culp OD Unavailable Omid Martinez MD Primary Care Provider Encounters Date Type Department Care Team Description 11/15/2024 2:15 PM CDT Office Visit [facility] Ophthalmology [address] [place] [phone] Nita Park MD Postop check (Primary Dx) 11/08/2024 8:45 AM CDT Office Visit [facility] Ophthalmology [address] [place] [phone] Nita Park MD Postop check (Primary Dx) 11/07/2024 12:15 PM CDT - 11/07/2024 1:10 PM CDT Surgery [facility] Operating Room [facility] ([facility]) [address] [place] [phone] Nita Park MD EXTRACTION CATARACT - PHACOEMULSIFICATION AND LENS IMPLANT 11/07/2024 10:37 AM CDT Anesthesia Event [facility] Operating Room [facility] ([facility]) [address] [place] [phone] Will Dior MD Harkins, Cherice Lynette, NP 11/07/2024 10:08 AM CDT - 11/07/2024 12:10 PM CDT Hospital Encounter [facility] Operating Room [facility] ([facility]) [address] [place] [phone] Nita Park MD 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] (Primary Dx) Discharge Disposition: Discharge to home or self care 10/11/2024 Telephone [facility] Ophthalmology [address] [place] [phone] Ivana Gates COA 10/04/2024 Telephone [facility] Ophthalmology [address] [place] [phone] Ivana Gates COA 10/04/2024 2:45 PM CDT Office Visit [facility] Ophthalmology [address] [place] [phone] Nita Park MD 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 both eyes (Primary Dx); Combined forms of age-related cataract of both eyes; Pellucid marginal degeneration of both corneas; NAION (non-arteritic anterior ischemic optic neuropathy), bilateral 09/12/2024 Documentation [facility] Ophthalmology [address] [place] [address] [address] [place] [phone] Argenis Jama MD 09/12/2024 10:00 AM CDT - 09/12/2024 11:59 PM CDT Hospital Encounter [facility] Radiology [facility] ([facility]) [address] [place] [phone] Discharge Disposition: Discharge to home or self care 09/12/2024 9:59 AM CDT - 09/12/2024 11:59 PM CDT Hospital Encounter [facility] Radiology [facility] ([facility]) [address] [place] [phone] Discharge Disposition: Discharge to home or self care 09/07/2024 Results Follow-Up [facility] Ophthalmology [address] [place] [phone] Argenis Jama MD Vitamin A, HIV 1/2 Antibody plus p24 Antigen Blood, RPR Blood, Additional followed-up results: 5 09/04/2024 10:40 AM CDT Lab [address] [address] Optic atrophy, both eyes 09/04/2024 9:15 AM CDT Office Visit [facility] Op[facility]mology [address] [place] [phone] Argenis Jama MD Optic atrophy, both eyes (Primary Dx); 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; Snoring; Unspecified disorder of visual pathways 09/04/2024 8:30 AM CDT Imaging Exam [facility] [address] [place] [phone] Unspecified disorder of visual pathways; Observation for other specified suspected conditions 08/30/2024 Orders Only [facility] [address] [place] [phone] Argenis Jama MD Unspecified disorder of visual pathways (Primary Dx); Observation for other specified suspected conditions from Last 3 Months Allergies No known active allergies Medications rosuvastatin (Crestor) 10 mg tabletIndicati ons:hyperlipid emia Take 1 tablet (10 mg total) by mouth every evening 4 Active bimatoprost (Lumigan) 0.01 % ophthalmic drops Administer 1 drop into both eyes nightly 5 mL 11 5 07/03/19 26 Active timolol (TIMOPTIC) 0.5 % ophthalmic solutionIndica tions:open angle glaucoma Administer 1 drop into both eyes 2 (two) times a day Active aspirin 81 mg enteric coated tabletIndicati ons:general health Take 1 tablet (81 mg total) by mouth nightly Active prednisoLONE acetate (PRED FORTE) 1 % ophthalmic suspension Administer 1 drop into the right eye 4 (four) times a day 5 mL 5 Active ofloxacin (OCUFLOX) 0.3 % ophthalmic solution Administer 1 drop into the right eye 4 (four) times a day 5 mL 5 11/16/19 25 Discontinu ed(Therapy completed) Active Problems Problem Noted Date Diagnosed Date Postop check 11/08/2024 Assessment & Plan (11/15/2024 7:50 PM CDT): POD 8 Extraction Cataract - Phacoemulsification And Lens Implant - Right VA 20/15 with Mrx set for near (~-2.00) Notes he cannot see at all with his previous glasses Rx in the right eye. (Previous Rx -7.0 +5.0 cyl), defers new Mrx for now and will recheck next visit. DC Oflox Taper PF 3-2-1-0 Cont glc meds for now F/U 3 wks- recheck Mrx Assessment & Plan (11/08/2024 8:54 AM CDT): POD1 status post (s/p) cataract extraction (CE)/intraocular lens (IOL) right eye (OD) Doing well Vision limited by Optic neuropathy Target near vision Epiphora- ? Lower lid (LL) ectropion, discussed with pt PF/Oflox qid Reviewed prec F/U 1 wk/prn Pellucid marginal degeneration of both corneas 0 [...] loss Assessment & Plan (08/16/2024 12:38 PM [employer] WORK[employer]): NAION OD 2019, OS 2022 per TRI note MRI Brain performed 03/2023 ? Consistent with ischemic event given objective (visual field (VF) and subjective vision loss Has appointment scheduled with neuro-ophth 08/2024 Assessment & Plan (07/21/2024 4:10 PM [employer] WORK[employer]): Sup altitudinal visual field (VF) loss Ou [...] 05/23/2024 Assessment & Plan (07/26/2024 8:16 AM [employer] WORK[employer]): And high myopia may be contibuting to vf loss Assessment & Plan (05/23/2024 11:10 AM [employer] WORK[employer]): Pt has Myopic/tilted nerve from high myopic [...] -2.50 Assessment & Plan (08/16/2024 12:53 PM [employer] WORK[employer]IATIVE [employer]): Myopic shift- hold on new Mrx for now with marked change F/U with IOLM and further discussion of cataract extraction (CE) Assessment & Plan (05/23/2024 11:08 AM [employer] WORK[employer]): Small central posterior subcapsular cataract (PSC) OD [...] phaco Assessment & Plan (08/16/2024 12:40 PM 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 Lopez for [...] referral Obtain records from Dr. Culp at [facility] Obtain MRI for Dr. Jama's review - continue lumigan qhs and jasen both eyes (OU) Assessment & Plan (07/21/2024 4:03 PM [employer] WORK[employer]): No family history Difficult to discern anterior [...] service Assessment & Plan (05/23/2024 12:29 PM [employer] WORK[employer]): No family history Diagnosed by Dr Foster, [...] you have a drink containing alc ohol? 2-4 times a month 10/23/2024 Q2: How many drinks containi ng alcohol do you have on a typical day when you are drinking? 1 or 2 10/23/2024 Q3: How often do you have si x or more drinks on one occasion? Never 10/23/2024 Personal Safety Answer Date Recorded Have you ever been in or are you currently in a harmful physical or emotional relationship or is someone making you feel afraid or unsafe? Denies 11/07/2024 Sex and Gender Information Value Date Recorded Sex Assigned at Not on file Legal Sex Male 11:34 PM [employer] Gender Identity Not on file Sexual Orientation Not on file Last Filed Vital Signs Vital Sign Reading Time Taken Comments Blood Pressure 115/70 11/07/2024 11:40 AM CDT Pulse 61 11/07/2024 11:40 AM CDT Temperature 36.1 C (97 F) 11/07/2024 11:20 AM CDT Respiratory Rate 11 11/07/2024 11:40 AM CDT Oxygen Saturation 96% 11/07/2024 11:40 AM CDT Inhaled Oxygen Concentration - - Weight 133.8 kg (295 lb) 11/07/2024 10:25 AM CDT Height 180.3 cm (5' 11) 11/07/2024 10:25 AM CDT Body Mass Index 41.14 11/07/2024 10:25 AM CDT Plan of Treatment Not on file Medical Devices Implanted Type Area Drafter Seismograph Device Identifier Shelf Expiration Date Model / Serial / Lot [place] [employer] Lens Iol Monofocal Anterior Biconvex Optic Single Piece Tecnis Simplicity 6.0x13.0 +18.5d Hydrophobic Acrylic [id number] - [id number] - [id number] Implanted:Qty: 1 on 11/07/2024 by Nita Park MD at [facility] Lens Right: Lens [place] [employer] [id number] 07/20/2026 [id number] / [id number] / 0 Procedures Procedure Name Priority Date/Time Associated Diagnosis Comments EXTRACTION CATARACT WITH LENS IMPLANT. 11/07/2024 10:41 AM CDT Combined forms of age-related cataract of both eyes IOL BIOMETRY - OU - BOTH EYES [...] pathways Observation for other specified suspected conditions from Last 3 Months Results * IOL [...] inferior island 10-2 baseline Nita Park MD OPHTH VISUAL FIELD Final Result * Neuro MR Outside Reference (09/12/2024 10:00 AM CDT) Impressions [facility] - 09/12/2024 10:00 AM CDT These images are for Reference purposes only and have not been reviewed by [facility]iology. There will be no report generated by a [facility] Radiologist. Narrative [facility] - 09/12/2024 10:00 AM CDT EXAMINATION: Images For Reference Purposes Only Argenis Jama MD [facility] MRI PROCEDURES Final Re sult Performing Organization Address [facility] Co de Phone Number [email or web address] * Neuro MR Outside Reference (09/12/2024 9:59 AM CDT) Impressions [facility] - 09/12/2024 9:59 AM CDT These images are for Reference purposes only and have not been reviewed by [facility]iology. There will be no report generated by a [facility] Radiologist. Narrative [facility] - 09/12/2024 9:59 AM CDT EXAMINATION: Images For Reference Purposes Only Argenis Jama MD IM MRI PROCEDURES Final Re sult Performing Organization Address City/[facility] Co de Phone Number [email or web address] * HIV [...] GENERAL ORDERABLES Final Result Performing Organization Address [facility] de Phone Number STEFANIE [facility] [place] [email or web address] [address] * Methylmalonic acid, serum (09/04/2024 10:53 AM CDT) MMA 0.25 <=0.40 nmol/mL [facility] Comment: ADDITIONAL INFORMATION This test was developed and its performance characteristics determined by [facility] in a manner consistent with CLIA requirements. This test has not been cleared or approved by the U.S. Food and Drug Administration. Test Performed by: [facility] [place] [address] Coordinator Skill Training Program: Jarrod Macias Ph.D.; CLIA# [id number] Blood 09/04/2024 10:5 3 AM CDT 09/04/2024 2:21 PM CDT Argenis Jama MD LAB BLOOD ORDERABLES Final Result Performing Organization Address [facility] de Phone Number STEFANIE [facility] [place] [email or web address] [address] [facility] ref [facility] * Copper, serum (09/04/2024 10:53 AM CDT) Copper 119 73 - 129 mcg/dL [facility] ref [facility] Comment: ADDITIONAL INFORMATION This test was developed and its performance characteristics determined by [facility] in a manner consistent with CLIA requirements. This test has not been cleared or approved by the U.S. Food and Drug Administration. Test Performed by: [facility] [place] [address] Coordinator Skill Training Program: Jarrod Macias Ph.D.; CLIA# [id number] Blood 09/04/2024 10:5 3 AM CDT 09/04/2024 12:43 PM CDT Narrative ST[facility]ANIE [facility] - 09/05/2024 3:49 PM CDT Axis blue top tube. No additives. us Argenis Jama MD LAB BLOOD ORDERABLES Final Result Performing Organization Address City/[facility]/ZIP Co de Phone Number [facility] [place] [address] [place] ref [facility] * Vitamin A (09/04/2024 10:53 AM CDT) [facility] Vitamin A 42.4 32.5 - 78.0 mcg/dL [facility] ref Lab Comment: ADDITIONAL INFORMATION This test was developed and its performance characteristics determined by [facility] in a manner consistent with CLIA requirements. This test has not been cleared or approved by the U.S. Food and Drug Administration. Test Performed by: [facility] [place] [address] Coordinator Skill Training Program: Jarrod Macias Ph.D.; CLIA# [id number] Blood 09/04/2024 10:5 3 AM CDT 09/04/2024 12:43 PM CDT us Argenis Jama MD LAB BLOOD ORDERABLES Final Result Performing Organization Address City/[facility]/ZIP Co de Phone Number [facility] [place] [address] [place] ref [facility] * RPR Blood (09/04/2024 10:53 AM CDT) Pathologist [facility] RPR Nonreactive Nonreactive Blood 09/04/2024 10:5 3 AM CDT 09/04/2024 12:35 PM CDT us Argenis Jama MD LAB MICROBIOLOGY - GENERAL ORDERABLES Final Result Performing Organization Address City/[facility] Co de Phone Number [facility] [place] [address] * Vitamin B1 (09/04/2024 10:53 AM CDT) [facility] Thiamine (Vit B1) 141 70 - 180 nmol/L [facility] ref Lab Comment: ADDITIONAL INFORMATION This test was developed and its performance characteristics determined by [facility] in a manner consistent with CLIA requirements. This test has not been cleared or approved by the U.S. Food and Drug Administration. Test Performed by: [facility] - [address] [address] Coordinator Skill Training Program: Jarrod Macias Ph.D.; CLIA# [id number] Blood 09/04/2024 10:5 3 AM CDT 09/04/2024 12:43 PM CDT us Argenis Jama MD LAB BLOOD ORDERABLES Final Result Performing Organization Address City/[facility] Co de Phone Number [facility] [place] [address] [address] [place] ref [facility] * Folate (09/04/2024 10:53 AM CDT) [facility] Folic acid 12.3 >=5.0 ng/mL Blood 09/04/2024 10:5 3 AM CDT 09/04/2024 12:35 PM CDT us Argenis Jama MD LAB BLOOD ORDERABLES Final Result Performing Organization Address City/State/[facility] Co de Phone Number STEFANIE [facility] [address] [address] * Vitamin B12 (09/04/2024 10:53 AM CDT) Vitamin B12 428 230 - 1,250 pg/mL Blood 09/04/2024 10:5 3 AM CDT 09/04/2024 12:35 PM CDT us Argenis Jama MD LAB BLOOD ORDERABLES Final Result Performing Organization Address [facility] de Phone Number [facility] [place] [address] [address] * Marroquin Visual Field - OU - Both Eyes (09/04/2024 8:57 AM CDT) Pathologist [facility] Pattern Deviation OS 10.91 dB CONTINUUM Pattern [...] which is stable compared to Jun 2024. us Argenis Jama MD OPHTH VISUAL FIELD Final Re sult from Last [address] [facility] [place] [address] Care Teams Qa Software Tester Relationship Specialty Start Date End Date Omid Martinez MD [address] [place] [address] PCP - General Family Medicine 10/04/24 Omid Martinez MD [address] [place] [address] Referring Physician Family Medicine 09/04/24 Ton Araiza MD [address] [facility] [address] [place] [address] Referring Physician Retina Ophthalmology 09/04/24 Nita Park MD [address] [facility] DEPT OPHTHALMOLOGY, [address] [place] [address] Consulting Physician Glaucoma Ophthalmology 09/04/24 Ck Vasquez, OD [address] [place] [address] Primary Eye Care Provider Optometry 09/04/24 Segun Kaur MD [address] [place] [address] Consulting Physician Retina Ophthalmology 09/04/24 Bonita Culp, OD [address] [place] [address] Primary Eye Care Provider Optometry 09/04/24
--- OUTSIDE RECORDS SUMMARY | 2024-11-21 08:42 | XMS_ITS | Continuity of Care Document ---
Author Organization [facility] Address [address] [place] [address] [place] [address] Phone Care Team Providers Care Senior Sql Server Database Developer Name Role Phone Omid Martinez MD Unavailable [...] Copied on Encounter OFFICE/OUTPA TIENT VISIT, EST [facility], [address] [place], [place], [id number], [place] tel:[phone] [facility] shoulder pain1 (chief complaint) HLP (chief complaint) weight gain1 (chief complaint) vision1 (chief complaint) Pain in left shoulderMixed hyperlipidemiaIsche tricia optic neuropathy of eyeAbnormal weight gainEncounter for screening for malignant neoplasm of colon [address], [place], [id number] , [place]. tel:[phone] OFFICE/OUTPA TIENT VISIT, [facility], [address] [place], [address], [place] tel:[phone] [facility] COVID1 (chief complaint) Viral infection [address] Juan [address], [place], [place], [address] , [place]. tel:[phone] OFFICE/OUTPA TIENT VISIT, EST [facility], [address], [place], [place], [address], [place] tel:[phone] [facility] visual loss1 (chief complaint) Ischemic optic neuropathy of eye [address] Juan [address], [place], [place], [address] , [place]. tel:[phone] PREV VISIT, NEW, AGE 40-64 [facility], [address], [place], [place], [id number], [place] tel:[phone] [facility] physical (chief complaint) Encounter for general adult medical exam w abnormal findingsMixed hyperlipidemiaOther visual disturbances [address] Juan Anne. [address], [place], [place], [address] , [place]. [phone] Family History Family Member Type Diagnosis Age At Onset Mother Problem 94 breast CA Sister Problem Alive and well Brother Problem Prostate CA 67 Father Problem of esophageal CA 86 Payers Payer name Insurance type Covered alliance party ID Authoriza tion(s) Medicare Of [place] WPS MB [id number] [facility] [id number] Social History Type Description Quantity Date Captured [...] Treatment Date Type Action Status Referral Ordered: Physical Therapy (related to Pain in left shoulder) ordered Referral Ordered: ALEJA JURADO -[facility] Osteopathic Physicians : Orthopaedic Surgery (related to Pain in left shoulder) ordered Referral Referred To: Physical Therapy Ordered: Referrals: Physical Therapy. Evaluate and treat ordered Referral Referred To: ALEJA JURADO [address] [place], [place], [phone] Ordered: Referrals: [facility]opathic Physicians : Orthopaedic Surgery. ALEJA JURADO. Evaluate and treat ordered Referral Ordered: Martin Tenorio -[facility] Physicians : Ophthalmology (related to Ischemic optic neuropathy of eye) ordered Referral Referred To: Martin Tenorio [address] [facility]
[address] [place], [place], [phone] Ordered: Referrals: [facility] Osteopathic Physicians : Ophthalmology. Martin Tenorio. Evaluate and treat ordered Referral Ordered: Ton Araiza -[facility]opathic Physicians : Ophthalmology (related to Other visual disturbances) ordered Referral Ordered: COLONOSCOPY AND BIOPSY ordered Referral Referred To: Ton Araiza [address] [facility]
[address] [place], [phone] Ordered: Referrals: [facility]opathic & Osteopathic Physicians : Ophthalmology. Ton Araiza. Evaluate and treat ordered Appointment Zana Garcia BOOKED History Of Present Illness Encounter Date Complaint History Of Prese nt Illness vision1 pt has bilateral ischemia neuropathy both byes and he is seeing ophthalmology to try to find a solution Pt has decreased vision weight gain1 Pt has been gain ing weight Pt is not physically active HLP Pt has HLP Pt jose burns Pt denies any myalgia. his lipid profile is ok shoulder pain1 Pt c/o chronic l eft shoulder pain for one year Pt denies any injury Pt notices sharp pain left shoulder when he tries to lift left shoulder Pt notices some pain radiating down to left elbow as well .Pt denies any neck pain Pt denies any numbness or tingling. Pt denies any shoulder redness or warmth COVID1 Pt c/o acute ons et of [...] only half of the vision Pt sees seo associate and retina specialist. Pt needs referral. Pt [...] Mental Status Date Cognitive Assessment Orientation - [place] ed to time, place, person, situation.
--- OUTSIDE RECORDS SUMMARY | 2024-11-21 08:42 | XMS_ITS | Clinical Summary ---
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 Lopez for [...] referral Obtain records from Dr. Culp at [facility] Obtain MRI for Dr. Jama's review - continue lumigan qhs and jasen both eyes (OU) Assessment & Plan (07/21/2024 4:03 PM MEAT HANGER): No family history Difficult to discern anterior [...] service Assessment & Plan (05/23/2024 12:29 PM MEAT HANGER): No family history Diagnosed by Dr Foster, [...] Description 11/15/2024 2:15 PM CDT Office Visit [facility] Ophthalmology [address] [place] [phone] Nita Park MD Postop check (Primary Dx) 11/08/2024 8:45 AM CDT Office Visit [facility] Ophthalmology [address] [place] [phone] Nita Park MD Postop check (Primary Dx) 11/07/2024 12:15 PM CDT - 11/07/2024 1:10 PM CDT Surgery [facility] Operating Room [facility] ([facility]) [address] [place] [phone] Nita Park MD EXTRACTION CATARACT - PHACOEMULSIFICATION AND LENS IMPLANT 11/07/2024 10:37 AM CDT Anesthesia Event [facility] ([facility]) [address] [place] [phone] Will Dior MD Harkins, Cherice Lynette, NP 11/07/2024 10:08 AM CDT - 11/07/2024 12:10 PM CDT Hospital Encounter [facility] ([facility]) [address] [place] [phone] Nita Park MD 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] (Primary Dx) Discharge Disposition: Discharge to home or self care 10/11/2024 Telephone [facility]mology [address] [place] [phone] Ivana Gates COA 10/04/2024 2:45 PM CDT Office Visit [facility] [address] [place] [phone] Nita Park MD 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 both eyes (Primary Dx); Combined forms of age-related cataract of both eyes; Pellucid marginal degeneration of both corneas; NAION (non-arteritic anterior ischemic optic neuropathy), bilateral 10/04/2024 Telephone [facility] [address] [place] [phone] Ivana Gates COA 09/12/2024 10:00 AM CDT - 09/12/2024 11:59 PM CDT Hospital Encounter [facility] ([facility]) [address] [place] [phone] Discharge Disposition: Discharge to home or self care 09/12/2024 9:59 AM CDT - 09/12/2024 11:59 PM CDT Hospital Encounter [facility] ([facility]) [address] [place] [phone] Discharge Disposition: Discharge to home or self care 09/12/2024 Documentation 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; Snoring; Unspecified disorder of visual pathways 09/04/2024 8:30 AM CDT Imaging Exam [facility] [address] [place] [phone] Unspecified disorder of visual pathways; Observation for other specified suspected conditions 08/30/2024 Orders Only [facility] [address] [place] [phone] Argenis Jama MD Unspecified disorder of visual pathways (Primary Dx); Observation for other specified suspected conditions from Last 3 Months Surgical History Surgery Date Site/Laterality Comments LUMBAR DISC SURGERY 06/28/1993 - 06/27/1994 LUMBAR DISC SURGERY 06/28/2003 - 06/27/2004 ANTERIOR CRUCIATE LIGAMENT REPAIR 06/28/2005 - 06/27/2006 Right x2 COLONOSCOPY CATARACT EXTRACTION 11/07/2024 Right CATARACT EXTRACTION EXTRACAPSULAR W/ INTRAOCULAR LENS IMPLANTATION 11/07/2024 Eye/Right Procedure: EXTRACTION CATARACT - PHACOEMULSIFICATION AND LENS IMPLANT; Surgeon: Nita Park MD; Location: [facility] OR POD 4; Service: Ophthalmology; Laterality: Right; Medical devices from this surgery are in the Medical Devices section. 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) Epiretinal membrane (ERM) of left eye Family History Medical History Relation Name Comments Cancer Father Family history of malignant neoplasm - (Added by ENRIQUE Conv) Coronary artery disease Father Dinesh nary artery disease; Hypertension Father Family history of hypertension - (Added by ENRIQUE Conv) Anesthesia problems Neg Hx Relation Name Status Comments Father Alive Social History Tobacco Use Types Packs/Day Years [...] on file Legal Sex Male 11:34 PM MEAT HANGER Gender Identity Not on file Sexual Orientation [...] 11/07/2024 10:25 AM CDT Plan of Treatment Health Maintenance Due Date Last Done Comments Colon Cancer Screening-Colonoscopy 1959 Depression Screening 1959 Hepatitis C Screening 1959 Prostate Cancer Screening-PSA 1959 Hepatitis B Screening 1977 Pneumococcal vaccine 65+ (1 of 1 - PCV) 2009 Zoster Vaccine (1 of 2) 2009 Covid-19 Vaccine (3 - 2023-2 5 season) 2024 09/18/2020, 08/21/2020 Well Visit 65+ 2024 Influenza Vaccine (Season Ended) 2025 05/24/2022, 04/18/2020, 09/15/2019, Additional history exists Fall Risk Assessment 11/07/2025 11/07/2024 DTaP/Tdap/Td Vaccine (3 - Td or Tdap) 05/24/2032 05/24/2022, 04/14/2018 Medical Devices Implanted Type Area Multiple Spindle Screw Machine Operator Device Identifier Shelf Expiration Date Model / Serial / Lot Genevieve Taasera Lens Iol Monofocal Anterior Biconvex Optic Single Piece Tecnis Simplicity 6.0x13.0 +18.5d Hydrophobic Acrylic [id number] - [id number] - [id number] Implanted:Qty: 1 on 11/07/2024 by Nita Park MD at [facility] Lens Right: Lens Genevieve [employer] [id number] 07/20/2026 [id number] / [id number] / 0 Procedures Procedure Name Priority [...] defect with remaining inferior island 10-2 baseline Result [facility] us Nita Park MD OPHTH VISUAL FIELD Final Result * Neuro MR Outside Reference (09/12/2024 10:00 AM CDT) Impressions [facility] - 09/12/2024 10:00 AM CDT These images are for Reference purposes only and have not been reviewed by [facility]iology. There will be no report generated by a [facility] Radiologist. Narrative [facility] - 09/12/2024 10:00 AM CDT EXAMINATION: Images For Reference Purposes Only Result [facility] Argenis Jama MD [facility] MRI PROCEDURES Final Re sult Performing Organization Address [facility] Co de Phone Number [email or web address] * Neuro MR Outside Reference (09/12/2024 9:59 AM CDT) Impressions [facility] - 09/12/2024 9:59 AM CDT These images are for Reference purposes only and have not been reviewed by [facility] Radiology. There will be no report generated by a [facility] Radiologist. Narrative [facility] - 09/12/2024 9:59 AM CDT EXAMINATION: Images For Reference Purposes Only Result [facility] Argenis Jama MD [facility] MRI PROCEDURES Final Re sult Performing Organization Address [facility] Co de Phone Number [email or web address] * HIV [...] GENERAL ORDERABLES Final Result Performing Organization Address [facility] de Phone Number STEFANIE BOYD [facility] [place] [address] * Methylmalonic acid, serum (09/04/2024 10:53 AM CDT) MMA 0.25 <=0.40 nmol/mL [facility] Comment: ADDITIONAL INFORMATION This test was developed and its performance characteristics determined by [facility] in a manner consistent with CLIA requirements. This test has not been cleared or approved by the U.S. Food and Drug Administration. Test Performed by: [facility] [place] [address] Global Account Manager: Jarrod Macias Ph.D.; CLIA# [id number] Blood 09/04/2024 10:5 3 AM CDT 09/04/2024 2:21 PM CDT us Argenis Jama MD LAB BLOOD ORDERABLES Final Result Performing Organization Address [facility] de Phone Number [facility]IE [facility] [place] [address] [facility] * Copper, serum (09/04/2024 10:53 AM CDT) Copper 119 73 - 129 mcg/dL [facility] ref [facility] Comment: ADDITIONAL INFORMATION This test was developed and its performance characteristics determined by [facility] in a manner consistent with CLIA requirements. This test has not been cleared or approved by the U.S. Food and Drug Administration. Test Performed by: [place] [address] Global Account Manager: Jarrod Macias Ph.D.; CLIA# [id number] Blood 09/04/2024 10:5 3 AM CDT 09/04/2024 12:43 PM CDT Narrative STEFANIE [facility] - 09/05/2024 3:49 PM CDT [place] blue top tube. No additives. Argenis Jama MD LAB BLOOD ORDERABLES Final Result Performing Organization Address City/[facility] Co de Phone Number [facility] [place] [employer] [place] [address] [facility] * Vitamin A (09/04/2024 10:53 AM CDT) [facility] [place] Vitamin A 42.4 32.5 - 78.0 mcg/dL [facility] Comment: ADDITIONAL INFORMATION This test was developed and its performance characteristics determined by [facility] in a manner consistent with CLIA requirements. This test has not been cleared or approved by the U.S. Food and Drug Administration. Test Performed by: [place] [id number] Global Account Manager: Jarrod Macias Ph.D.; CLIA# [id number] Blood 09/04/2024 10:5 3 AM CDT 09/04/2024 12:43 PM CDT us Argenis Jama MD LAB BLOOD ORDERABLES Final Result Performing Organization Address City/[facility]/ZIP Co de Phone Number [facility] [place] [place] [address] [facility] * RPR Blood (09/04/2024 10:53 AM CDT) [facility] RPR Nonreactive Nonreactive Blood 09/04/2024 10:5 3 AM CDT 09/04/2024 12:35 PM CDT us Argenis Jama MD LAB MICROBIOLOGY - GENERAL ORDERABLES Final Result Performing Organization Address [facility] Co de Phone Number [facility] [place] [address] * Vitamin B1 (09/04/2024 10:53 AM CDT) Thiamine (Vit B1) 141 70 - 180 nmol/L [facility] Comment: ADDITIONAL INFORMATION This test was developed and its performance characteristics determined by [facility] in a manner consistent with CLIA requirements. This test has not been cleared or approved by the U.S. Food and Drug Administration. Test Performed by: [facility] [place] [address] [place] [address] Global Account Manager: Jarrod Macias Ph.D.; CLIA# [id number] Blood 09/04/2024 10:5 3 AM CDT 09/04/2024 12:43 PM CDT us Argenis Jama MD LAB BLOOD ORDERABLES Final Result Performing Organization Address [facility] de Phone Number STEFANIE [facility] Department [place] [address] [facility] * Folate (09/04/2024 10:53 AM CDT) Folic acid 12.3 >=5.0 ng/mL Blood 09/04/2024 10:5 3 AM CDT 09/04/2024 12:35 PM CDT us Argenis Jama MD LAB BLOOD ORDERABLES Final Result Performing Organization Address City/[facility]/ZIP Co de Phone Number [facility] [place] [address] * Vitamin B12 (09/04/2024 10:53 AM CDT) Vitamin B12 428 230 - 1,250 pg/mL Blood 09/04/2024 10:5 3 AM CDT 09/04/2024 12:35 PM CDT us Argenis Jama MD LAB BLOOD ORDERABLES Final Result [facility] Department [place] [address] * Marroquin Visual Field - OU - Both Eyes (09/04/2024 8:57 AM CDT) [facility] Signature Pattern Deviation OS 10.91 dB CONTINUUM Pattern [...] Re sult from Last [address] [facility] MEDICARE [employer] [facility] [place] Care Teams Human Services Care Specialist Relationship Specialty Start Date End Date Omid Martinez MD [address] [place] [address] PCP - General Family Medicine 10/04/24 Omid Martinez MD [address] [place] [address] Referring Physician Family Medicine 09/04/24 Ton Araiza MD [address] [facility] [address] [place] [address] Referring Physician Retina Ophthalmology 09/04/24 Nita Park MD [address] [facility], [address] [place] [address] Consulting Physician Glaucoma Ophthalmology 09/04/24 Ck Vasquez, OD [address] [place] [address] Primary Eye Care Provider Optometry 09/04/24 Segun Kaur MD [address] [place] [address] Consulting Physician Retina Ophthalmology 09/04/24 Bonita Culp, OD [address] [place] [address] Primary Eye Care Provider Optometry 09/04/24
--- NOTE | 2024-11-27 08:43 | PCPTNOTE ---
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 AKS
[2024-12-12 14:08] VITALS: BMI 38.7
--- NOTE | 2024-12-12 14:08 | P.SLEEP_ITS ---
Sleep Study - Home Unattended Date of Study: 11/21/24 Ordering Provider: Jesu Pacheco APRN Interpreting Provider: Natividad Morejon DO Home Sleep Study Type: Watch PAT Height: 1.83 m Weight: 129.727 kg Body Mass Index: 38.7 Neck Circumference (inches): 17.75 [place]: 0 Reason for Sleep Study Loud snoring Sleep History The patient is a 64-year-old male that had a sleep study ordered for evaluation of sleep apnea. The patient admits to snoring loudly and interruptions in breathing while asleep. He denies choking or gasping at night. He denies having trouble breathing on his back. He denies morning headaches. He denies having a dry or sore mouth / throat in the morning. He denies nocturnal heartburn. He denies nocturia. He denies having trouble falling asleep. He does have difficulty staying asleep. If he wakes up throughout the night he does have difficulty returning to sleep. He denies any hypnotic or sedative use. He denies feeling anxious about sleep. He denies feeling tired or sleepy during the day. He denies feeling tired in the morning. He denies having the urge to fall asleep during the day. He denies feeling drowsy while driving. He denies sleep paralysis, cataplexy and hypnagogic/ hypnopompic hallucinations. He denies clenching or grinding his teeth. He denies kicking or jerking his legs excessively. He denies having a restless feeling in his legs. He goes to bed at 9:00 p.m. on work days and at 10:00 p.m. on his days off. It takes him 15 minutes to fall asleep. He gets 6 hours of sleep per night. His sleep is not at all restorative on his days off. He denies taking any planned naps. He denies dream enactment behavior. He denies sleep walking. He denies consuming any caffeinated beverages throughout the day. He denies tobacco use. He has 1 alcoholic beverage 1-2 nights per week. He exercises 1-2 nights per week. [facility] Past Medical History Medical History HLP (hyperkeratosis lenticularis perstans) Hyperglycemia Right knee DJD Mass of right knee Difficulty hearing Visual loss Hearing loss Difficulty urinating Surgical History Surgical History S/P ACL surgery Previous back surgery Family History Family History Other Cancer Heart disease Hypertension Social History Social History Smoking status: Never smoker Alcohol intake: unknown Alcohol use details: socially Substance use: unknown Current Housing: Decline to Answer Concerned About Future Housing: Decline to Answer Difficulty Paying Gas/Electric Bills: Decline to Answer Difficulty Paying for Meds: Decline to Answer Currently Unemployed: Decline to Answer Education: Decline to Answer Difficulty w/ Childcare or Family Care: Decline to Answer Medications Home Medications ?Medication ?Instructions ?Recorded ?Confirmed ?Type bimatoprost 0.01 % eye drops 1 drp EACH EYE QPM 10/23/24 10/23/24 History (Ashley) Sleep Procedure The sleep study was completed using PikhubT a technically adequate device with seven channels: peripheral arterial tone, actigraphy, body position, snore, respiratory movement, pulse oximetry, sleep staging, and heart rate. Prior to using the device, the patient received verbal and written instructions for its application and was provided with the help desk phone number for additional telephonic instruction with 24-hour availability of qualified personnel to answer questions. The study was scored using CMS guidelines. Sleep Architecture The total recording time is 8 hrs, 17 min. The total sleep time is 6 hrs, 48 min. Sleep latency is 23 minutes. REM latency is 56 minutes. The patient had 15 episodes of waking. Sleep architecture shows 4.5% deep sleep, 71.2% light sleep, and (as % Total Sleep Time) showed NREM (Light 71.2%; Deep 4.5%), and a 24.2% stage REM. The patient spent 62.1% of total sleep time in the supine position. Sleep efficiency was 82.09. Respiratory Analysis The overall AHI (pAHI 4%:) is 4.0. The overall AHI (pAHI 3%:) is 12.1. The central AHI is 0.2. The AHI was 11.9 in NREM and 12.8 in REM sleep. The AHI was 16.9 in Supine and 4.3 in Non-supine sleep. Percent of Guicho Wilson respirations is 0.0. Oximetry Data The oxygen desaturation index (EVAN 4%:) is 3.8. The mean saturation is 93%, and the lowest saturation is 88%. Time spent with saturation < 88% is 0.0 minutes. Snoring Profile Snoring average intensity is 41 dB. The patient snored above 45 decibels for 29.8 minutes, 7.3% of sleep time. Cardiac Profile The average pulse rate is 70 beats per minutes. The lowest pulse rate is 57 bpm. The highest pulse rate reported is 90 bpm. Atrial fibrillation was not detected. Premature beats occur <0.1 per minute. Assessment and Plan Assessment and Plan (1) Snoring: Code(s): R06.83 - Snoring Status: Acute Assessment and Plan: The patient had an overall AHI of 4.0 with desaturation down to 88%. This is not consistent with sleep disordered breathing. If there is further concern for a sleep disorder, I recommend the patient have a split study with the use of a hypnotic to ensure we obtain enough sleep data. Data The data obtained during this sleep study is adequate for interpretation. Certification This sleep study has been reviewed by a board certified sleep medicine physician.
== END 2024-11-22 12:43 | disposition home or self-care (01) ==
LOC: ANHCSM 08:40
PROVIDERS: PCP Emergency Medicine; Visit Provider Nurse Practitioner Family
DX: R06.83 Snoring (principal); G47.30 Sleep apnea, unspecified
CPT/HCPCS: 95800

== ENCOUNTER 2024-12-11 07:30 | Outpatient (RCR) | payer MEDICARE, OTHER, SELFPAY ==
--- NOTE | 2024-10-11 10:53 | OPREHPOC ---
Outpatient Therapy Plan of Care This is a Multidisciplinary Plan of Care that may contain components documented by all disciplines (PT, OT, and ST.) PT Problem 1 PT Problem #1 Knowledge Deficit PT Goal 1 Goal / Goal Update *independent with HEP Target Visit 8 PT Problem 2 PT Problem #2 Impaired Strength PT Goal 1 Goal / Goal Update *increase strength of L shoulder, to improve use of his dominant arm for home and work tasks: in standing, active shoulder x 5 reps: 1* flexion to 120' 2* abduction to 105' 3* IR- reach behind back, palm to sacrum 4* ER- reach to back of head, palm to back of head Target Visit 8 PT Problem 3 PT Problem #3 Pain PT Goal 1 Goal / Goal Update * pt report pain rating at worst of 6/10 Target Visit 8
--- NOTE | 2024-10-11 10:53 | PTOPEVAL1 ---
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 He reports chronic shoulder pain with gradual increase in shoulder and neck pain. Neck pain has resolved, and has pain intermittent into L forearm. 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 DASH self assessment with 32% limitation in activity level. He is to have an xray and has appointment next week with orthopedic dr. With the evaluation: poor standing posture of shoulders and trunk; decreased L shoulder flexion , abduction, IR and ER strength, with abduction and flexion most painful. In supine, he has good shoulder passive ROM. With palpation, there is not any tenderness, reports deep in shoulder. Skilled PT services are indicated for modalities to decrease pain, therapeutic exercises to improve shoulder, scapular strength and education for HEP and posture/body mechanics. Plan of Care Interventions Electrical Stimulation,Hot Pack/Cold Pack,Manual Therapy,Neuro Re-education,Patient/Caregiver Education,Therapeutic Activities,Therapeutic Exercise,Ultrasound,Other Other Interventions taping PT Services Indicated Yes Treatment Frequency and 1-2x/wk for 8 visits Duration These treatments will address the objective and functional deficits as defined above. The patient will be advanced safely and appropriately in order for the patient to progress towards his/her prior level of function. Additional exercises will be introduced and as well as a comprehensive home exercise program upon discharge, if needed, ?to ensure carryover of functional gains achieved in the clinic. This treatment plan has been reviewed and agreement upon by the patient.
--- NOTE | 2024-11-06 08:47 | OPREHPOC ---
Outpatient Therapy Plan of Care This is a Multidisciplinary Plan of Care that may contain components documented by all disciplines (PT, OT, and ST.) PT Problem 1 PT Problem #1 Knowledge Deficit PT Goal 1 Goal / Goal Update *independent with HEP 11-06-24 progress goal met continue to progress education and HEP Target Visit 15 PT Problem 2 PT Problem #2 Impaired Strength PT Goal 1 Goal / Goal Update *increase strength of L shoulder, to improve use of his dominant arm for home and work tasks: in standing, active shoulder x 5 reps: 1* flexion to 120' 2* abduction to 105' 3* IR- reach behind back, palm to sacrum 4* ER- reach to back of head, palm to back of head 11-06-24 progress goals 1,2,4 met NEW GOALS: active L shoulder ROM in standin* flexion 145' 2* abduction 140' 3* IR- reach behind back, palm to sacrum Target Visit 15 PT Problem 3 PT Problem #3 Pain PT Goal 1 Goal / Goal Update * pt report pain rating at worst of 6/10 11-06-24 progress goal not met; pain rating of 8/10 at worst continue towards goal Target Visit 15
--- NOTE | 2024-11-06 08:48 | PTOPPROG ---
Assessment and note entered by Dorita Nieves, PT Assessment Status Progress ICD-10 Condition Codes (PT) Pain in left shoulder M25.512 Onset about 1 year Subjective Information feel like shoulder is better, peak pain is not as much as it used to be and therapy is helping; is doing things at home with his L arm--put together a swing set for his grand child with a helper; is to call Dr Falk if I need anything; going to have cataract surgery tomorrow; have been working on the exercises at home; want to continue therapy and try to avoid any surgery. Assessment PT Clinical Summary Zana has received 7 PT sessions. Compared to the initial evaluation, he has improved in all areas: now presents with: pain decreased to 0-8/10; self assessment Quick DASH rating of 20% limitation in activity level; increase ROM and strength of L shoulder in all motions; education for HEP and posture. L shoulder ROM: active in standing/passive in supine: flexion 125'/150'; abduction 110'/ 150'; IR-palm to buttocks/ 60'; ER-fingers to cervical spine/ 70'. LUE strength: 5 reps with hand weight: shoulder flexion to 90' with 5#; shoulder abduction to 90' with 5# and elbow flexion/ extension 20# Most pain reported with shoulder abduction and ER motions. The goals were partially met. Continue PT treatments. Plan of Care Interventions Electrical Stimulation,Hot Pack/Cold Pack,Manual Therapy,Neuro Re-education,Patient/Caregiver Education,Therapeutic Activities,Therapeutic Exercise,Ultrasound,Other Other Interventions taping PT Services Indicated Yes Treatment Frequency and 1-2x/wk for 8 visits Duration These treatments will address the objective and functional deficits as defined above. The patient will be advanced safely and appropriately in order for the patient to progress towards his/her prior level of function. Additional exercises will be introduced and as well as a comprehensive home exercise program upon discharge, if needed, ?to ensure carryover of functional gains achieved in the clinic. This treatment plan has been reviewed and agreement upon by the patient.
--- NOTE | 2024-11-14 08:19 | PCPTNOTE ---
Pt called and canceled. Unable to make appt today. Reason unknown. AKS
--- NOTE | 2024-12-07 07:53 | PCPTNOTE ---
No call no show, reason unknown. AKMihai
--- NOTE | 2024-12-14 08:26 | PCPTNOTE ---
pt did not show for today's reeval appt. Called and left voice message.
--- NOTE | 2025-01-12 11:55 | PCPTNOTE ---
PHYSICAL THERAPY DISCHARGE 01-12-25 Dr. Omid Spann has received a total of 9 PT sessions, from October 11 to December 11 for the diagnosis of L shoulder pain. He then stopped attending therapy. Discharge PT due to pt not attending.
== END 2025-01-09 23:59 | disposition home or self-care (01) ==
LOC: ANHPT 07:30
PROVIDERS: PCP Emergency Medicine; Visit Provider Emergency Medicine
DX: M25.512 Pain in left shoulder (principal)
CPT/HCPCS: 73030; 97110; 97140; 97161